=== PATIENT | male | born 1980 | race Two or more races ===

== ENCOUNTER 2024-04-05 00:37 | Emergency (ER) | payer MEDICAID, SELFPAY ==
[2024-04-05 00:52] VITALS: BP 128/83; PULSE 100; RESP 18; TEMP 37.2; O2SAT 95; BMI 28.6
--- NOTE | 2024-04-05 01:10 | PD.EDRME ---
Rapid Medical Screening Exam E Arrival date/time: 04/05/24 00:37 43M with history of seizures (on Keppra) presents to ED with 2 seizures today lasting about 3 min each. Chief Complaint: Seizure Vital signs: Vital Signs Temperature 99 F 04/05/24 00:52 Pulse Rate 100 04/05/24 00:52 Respiratory Rate 18 04/05/24 00:52 Blood Pressure 128/83 04/05/24 00:52 Pulse Oximetry (%) 95 04/05/24 00:52 Oxygen Delivery Method Room Air 04/05/24 00:52
[2024-04-05 01:34] LABS: Basophils # (Auto) 0.1 Thou/mm3 (0.0-0.2); Basophils % (Auto) 1 % (0-2.5); Eosinophils % (Auto) 0 % (0-10); Hematocrit 46.3 % (41.0-53.0); Immature Granulocytes % (Auto) 0 % (0-0); Immature Granulocytes Auto 0.03 Thou/mm3 (0.00-0.00); Lymphocytes # (Auto) 1.2 Thou/mm3 (1.0-4.8); Lymphocytes % (Auto) 12 % (10-50); Mean Corpuscular HGB Conc 34.6 g/dl (31.0-37.0); Mean Corpuscular Hemoglobin 31.9 pg (25.0-35.0); Mean Corpuscular Volume 92 fL (80-100); Monocytes # (Auto) 0.7 Thou/mm3 (0.0-0.8); Monocytes % (Auto) 7 % (0-12); Neutrophils # (Auto) 7.7 Thou/mm3 (1.8-7.7); Neutrophils % (Auto) 80 % (37-80); Nucleated Red Blood Cell % 0 /100 WBC (0); Platelet Count 182 Thou/mm3 (140-440); RDW Standard Deviation 41.6 fL (35.1-43.9); Red Blood Count 5.01 Miln/mm3 (4.50-5.90); White Blood Count 9.6 Thou/mm3 (3.8-10.6)
[2024-04-05 01:54] LABS: Alanine Aminotransferase 14 U/L (10-49); Albumin, Serum 4.8 gm/dL (3.5-5.0); Albumin/Globulin Ratio 1.6 (1.2-2.2); Alkaline Phosphatase 100 U/L (46-116); Anion Gap 6 (7-16); Aspartate Amino Transferase 19 U/L (0-34); BUN/Creatinine Ratio 13 Ratio (12-20); Bilirubin,Total 0.5 mg/dL (0.3-1.2); Blood Urea Nitrogen 16 mg/dL (9-23); Calcium 9.9 mg/dL (8.3-10.6); Calcium (Corrected) 9.9 mg/dL (8.5-10.1); Carbon Dioxide 27.4 mMol/L (20.0-31.0); Chloride 108 mMol/L (98-107); Creatinine (Component) 1.2 mg/dL (0.6-1.3); Estimated Creatinine Clearance 90.8 mL/min (>60); Glucose 104 mg/dL (74-106); Osmolality,Calculated 282 (275-295); Potassium 4.2 mMol/L (3.4-5.1); Sodium 141 mMol/L (136-145); Total Protein 7.8 gm/dL (5.7-8.2); eGFR > 60 See Note
[2024-04-05 02:03] LABS: Amphetamine/Methamp Scrn,U Negative (Negative); Barbiturate Screen,Urine Negative (Negative); Benzodiazepines Screen,Urine Negative (Negative); Benzoylecgonine Screen, Ur Negative (Negative); Fentanyl Screen,Urine Negative (Negative); Opiate Screen,Urine Negative (Negative); THC Screen,Urine Negative (Negative)
[2024-04-05 02:26] VITALS: BP 127/83; PULSE 88; RESP 18; TEMP 37.3; O2SAT 95
[2024-04-05 04:14] VITALS: BP 119/81; PULSE 70; RESP 17; TEMP 37.1; O2SAT 98
--- NOTE | 2024-04-05 06:39 | XR_ITS ---
Examination: CT brain head without contrast. 2-D sagittal coronal reconstructions Date and time of exam:April 05, 2024 0746 hrs. Indications: 2 episodes of seizure activity today, loss of consciousness episode November 29, 2007 CTDI: vol (mGy):54.6 DLP: (mGycm):1100 Technique: Multiple CT axial sections of the brain have been obtained, 5 mm slice thickness. Contrast has not been administered. 2-D sagittal, coronal reconstructions have been obtained Low dose protocols were performed. One or more of the following dose reduction techniques were used; automated exposure control, adjustment of the mA and/or KV according to patient size, use of iterative reconstruction technique. Findings: No significant ventricular enlargement. Intra-axial or extra-axial hemorrhage density is not seen. No mass effect or midline shift Basal cisterns are not remarkable. Fourth ventricle is midline. Cranial vault intact. Impression: Negative for acute hemorrhage, mass effect or midline shift Consider brain MRI follow-up, pre and postcontrast, seizure protocol
--- NOTE | 2024-04-05 08:58 | PD.EDSEIZ ---
ED Seizures RME/HPI General Chief Complaint: Seizure Stated Complaint: 2 Seizures in a row Time Seen by Provider: 04/05/24 05:41 Arrival date/time: 04/05/24 00:37 43-year-old male with seizure disorder currently on Keppra presents to the emergency department today stating that he had 2 seizures last night patient reports last seizure 12:30 AM. Patient reports no headache dizziness or weakness at this time patient reports no chest pain or shortness of breath no fever Limitations: no limitations RME / HPI RME / HPI Narrative: 04/05/24 00:37 43M with history of seizures (on Keppra) presents to ED with 2 seizures today lasting about 3 min each. Related Data Home Medications ?Medication ?Instructions ?Recorded ?Confirmed Phenytoin Sodium Extended * 3 cap PO QHS 0 days ##0 07/04/07 (DILANTIN *) gabapentin 300 mg capsule 300 mg PO HS ##0 04/10/09 (Neurontin) Previous Rx's ?Medication ?Instructions ?Recorded erythromycin 5 mg/gram (0.5 %) eye 2 inch Left eye BID ##1 09/01/11 ointment Allergies Allergy/AdvReac Type Severity Reaction Status Date / Time No Known Allergies Allergy Mild Uncoded 07/04/07 00:25 Review of Systems Review of Systems Systems Reviewed: All systems reviewed, normal except as documented Constitutional Constitutional: Reports system reviewed and no additional complaints, except as documented, Denies fever(s) and Denies headache(s) Eyes Eyes: Reports system reviewed and no additional complaints, except as documented and Denies blurry vision ENT Ears, Nose, Mouth, and Throat: Reports system reviewed and no additional complaints, except as documented, Denies headache(s), Denies nasal congestion and Denies nasal discharge Cardiovascular Cardiovascular: Reports system reviewed and no additional complaints, except as documented, Denies chest pain and Denies dyspnea Respiratory Respiratory: Reports system reviewed and no additional complaints, except as documented, Denies chest congestion, Denies cough and Denies dyspnea Gastrointestinal Gastrointestinal: Reports system reviewed and no additional complaints, except as documented and Denies abdominal pain Integumentary/Breasts Skin/Breast: Reports system reviewed and no additional complaints, except as documented and Denies rash Neurologic Neurologic: Reports system reviewed and no additional complaints, except as documented, Reports as per HPI and Denies headache(s) Past Medical History Past Medical History NEUROLOGIC: Negative Neurological Disorders CARDIAC: Negative Cardiac Disorders ED Exam General Limitations: Present no limitations General appearance: Present alert and in no apparent distress Head Head exam: Present atraumatic, normocephalic and normal inspection Eye Eye exam: Present normal appearance, PERRL and EOMI; Absent conjunctival injection ENT ENT exam: Present normal exam, normal oropharynx and mucous membranes moist Neck Neck exam: Present normal inspection, full ROM, trachea midline and other (Patient moves neck without difficult); Absent tenderness, meningismus or lymphadenopathy Chest Chest inspection: Present normal inspection and symmetric chest wall rise Respiratory Respiratory exam: Present normal lung sounds bilaterally Cardiovascular Cardiovascular exam: Present regular rate, normal rhythm and normal heart sounds Abdominal Exam Abdominal exam: Present soft and normal bowel sounds Extremities Exam Extremities exam: Present normal inspection and full ROM Back Exam Back exam: Present normal inspection and full ROM Neurological Exam Neurological exam: Present alert, oriented X3 and CN II-XII intact Psychiatric Psychiatric exam: Present normal affect and normal mood Skin Skin exam: Present warm, dry, intact and normal color Course Quality Measures none Orders Category Date Time Status CT head/brain wo con Stat Exams 04/05/24 06:39 Completed CBC Stat Lab 04/05/24 01:16 Completed CMP [Comprehensive Metabolic Panel] Stat Lab 04/05/24 01:16 Completed Drug Screen,Urine Stat Lab 04/05/24 01:24 Completed Lactate (Lactic Acid) Stat Lab 04/05/24 01:16 Completed Vital Signs Vital signs: Vital Signs Temperature 99 F 04/05/24 00:52 Pulse Rate 100 04/05/24 00:52 Respiratory Rate 18 04/05/24 00:52 Blood Pressure 128/83 04/05/24 00:52 Pulse Oximetry (%) 95 04/05/24 00:52 Oxygen Delivery Method Room Air 04/05/24 00:52 O2 saturation 95% room air within normal limit Seizure MDM Narrative MDM Narrative:: 43-year-old male with seizure disorder currently on Keppra presents to the emergency department today stating that he had 2 seizures last night patient reports last seizure 12:30 AM. Patient reports no headache dizziness or weakness at this time patient reports no chest pain or shortness of breath On exam patient well-appearing patient does not appear ill or toxic Lab work was ordered by my colleague, no acute emergent findings noted I ordered a CT scan, no acute emergent findings noted Patient took his dose of Keppra here in the emergency department Patient instructed to follow-up with neurologist within the next 24 to 48 hours and for any worsening symptoms to return immediately Patient data External records reviewed:: [facility] previous records Clinical information provided by:: patient Social determinants that could affect healthcare access:: none Patient has the following chronic illnesses:: Seizure disorder How is presenting disease/condition affected by chronic disease/condition?: caused by Evaluation data The following diagnostics were reviewed and interpreted by me:: lab results and radiology exam(s) Lab and/or radiology exams considered but not ordered:: Labs and radiology obtained Interpretation Summary: Reviewed by me Medications / Prescriptions Medications or Prescriptions considered but not ordered:: Given no meds Medication administrations:: No meds Consultations Consultation(s) initiated? (list below): No Diagnosis Seizure Differential Diagnosis: intractable seizure disorder, febrile convulsion, focal seizure, new onset seizure and epileptic seizure Most likely diagnosis given after review of the tests above:: Seizure disorder Admission Indicated Admission indicated?: not indicated Admission Request Was there a request for admission?: No Disposition Plan Disposition Plan: Discharge Discharge Attestation Discharge Attestation: The patient and all family members were given an opportunity to ask questions and understood the discharge instructions. Discharge instructions specifically effects, indications for sooner follow up or return to the emergency department, and the expected course of current diagnosis. Patient condition: Stable Discharge Plan Plan Patient Disposition: HOME (Self Care) Disposition Comment: Stable Prescriptions/Referrals Prescriptions/Med Rec: No Action Phenytoin Sodium Extended * (DILANTIN *) 100 MG capsule 3 cap PO QHS 0 Days Qty: 0 Patient Comments: FOR SEIZURE CONTROL gabapentin [Neurontin] 300 MG capsule 300 mg PO HS Qty: 0 erythromycin 3.5 GM ointment 2 inch Left eye BID Qty: 1 0RF Referrals: Josh Calderon MD [Primary Care Provider] - In 1 week Problem List Clinical Impression: Breakthrough seizure Patient/Caregiver Discharge Instructions Education Materials: ED Seizure, Recurrent (Adult) Additional Instructions: Please follow-up with your neurologist as discussed for worsening symptoms return immediately take all medication as prescribed Print Language: Sinhala Stand Alone Forms: [employer]umn Award Info., Patient Portal Info Letter PA/ENVIRONMENTAL PROGRAM MANAGER Supervising Physician PA/CHEMO Supervising Physician: Dr Brink
[2024-04-05 09:04] VITALS: BP 129/82; PULSE 75; RESP 17; TEMP 36.8; O2SAT 97
== END 2024-04-05 09:04 | disposition home or self-care (01) ==
PROVIDERS: Physician Assistant; Emergency Provider Emergency Medicine; PCP Family Medicine
DX: R56.9 Unspecified convulsions (principal)
CPT/HCPCS: 36415; 70450; 80053; 80307; 83605; 85025; 99284

== ENCOUNTER 2024-09-15 05:16 | Observation (INO) | payer MEDICAID, SELFPAY ==
[2024-09-15] VITALS (7 sets, daily range): BP systolic 115–130; BP diastolic 76–86; PULSE 72–98; RESP 15–21; TEMP 36.7–37.3; O2SAT 93–99; BMI 28.3
--- NOTE | 2024-09-15 | XR_ITS ---
Examination: MRI of brain without intravenous contrast. MRI brain with intravenous contrast. Date and time of exam:September 15, 2024 at 0955 hours INDICATIONS: Recurrent seizures beginning last night Technique: Multiple axial and sagittal images of the brain to been obtained. Siemens high-resolution 1.52 Yadira short bore scanner utilized. Sagittal sections, T1 weighted images, TR 500, TE 14, are performed. Axial sections proton-density and T2-weighted images have been obtained. Inversion recovery axial images, TR 9260, TE 111, TR 2500. Diffusion weighted images, axial sections, TR 4800, TE 128, B value 1000. Axial sections, ADC map, TR 4800, TE 128. Axial and coronal images were also obtained post 19 cc gadolinium administered intravenously. Findings:: Enlargement of the sella turcica is not present. The optic chiasm and infundibular stalk are not remarkable. There is no localized enlargement of the medulla or heena. Fourth ventricle and cerebellar tonsils appear normal in position. No subacute area of hemorrhage density is seen. Fourth ventricle is midline. Mass in the cerebellopontine angle region is not evident. 7th and 8th nerve complexes exhibit symmetry Globes are symmetrical Orbital musculature including medial lateral rectus muscles do not exhibit abnormality Increased white matter signal is not seen Effacement of the cortical sulcal markings is not identified. Mass effect upon the ventricular system is not identified. Diffusion-weighted images demonstrate no focus of restricted diffusion Contrast images demonstrate no abnormal enhancement Impression: Negative for acute hemorrhage mass effect or midline shift No acute infarct No MR findings diagnostic for demyelinating disease No abnormal enhancing lesions noted
--- NOTE | 2024-09-15 05:44 | XR_ITS ---
Examination: CT brain head without contrast. 2-D sagittal coronal reconstructions Date and time of exam:September 15, 2024 at 0640 hours INDICATIONS: New seizures this morning CTDI: vol (mGy):55.6 DLP: (mGycm):1125 Technique: Multiple CT axial sections of the brain have been obtained, 5 mm slice thickness. Contrast has not been administered. 2-D sagittal, coronal reconstructions have been obtained Low dose protocols were performed. One or more of the following dose reduction techniques were used; automated exposure control, adjustment of the mA and/or KV according to patient size, use of iterative reconstruction technique. Findings: No significant ventricular enlargement. Intra-axial or extra-axial hemorrhage density is not seen. No mass effect or midline shift Basal cisterns are not remarkable. Fourth ventricle is midline. Cranial vault intact. Impression: Negative for acute hemorrhage, mass effect or midline shift Consider brain MRI follow-up, pre and postcontrast, seizure protocol
--- NOTE | 2024-09-15 05:45 | PD.EDRME ---
Rapid Medical Screening Exam [facility] Arrival date/time: 09/15/24 05:16 43M with history of seizures presents to ED with 3 seizures yesterday. Patient has MAS and N/V. Patient denies URI symptoms and fevers/chills. Chief Complaint: Seizure Vital signs: Vital Signs Temperature 99.1 F 09/15/24 05:17 Pulse Rate 93 09/15/24 05:17 Respiratory Rate 20 09/15/24 05:17 Blood Pressure 115/80 09/15/24 05:17 Pulse Oximetry (%) 94 L 09/15/24 05:17 Oxygen Delivery Method Room Air 09/15/24 05:17
[2024-09-15] MEDS: LORazepam 0.5 MG TABLET 2 MG PO (06:06)
[2024-09-15] MEDS: ONDANSETRON ODT 4 MG TABRAP PO (06:07)
[2024-09-15 06:14] LABS: Basophils % (Auto) 0 % (0-2.5); Eosinophils % (Auto) 0 % (0-10); Hematocrit 43.8 % (41.0-53.0); Hemoglobin 15.7 g/dL (13.5-16.0); Immature Granulocytes % (Auto) 0 % (0-0); Immature Granulocytes Auto 0.05 Thou/mm3 (0.00-0.00); Lymphocytes # (Auto) 1.5 Thou/mm3 (1.0-4.8); Lymphocytes % (Auto) 10 % (10-50); Mean Corpuscular HGB Conc 35.8 g/dl (31.0-37.0); Mean Corpuscular Hemoglobin 32.4 pg (25.0-35.0); Mean Corpuscular Volume 90 fL (80-100); Monocytes % (Auto) 7 % (0-12); Neutrophils # (Auto) 12.2 Thou/mm3 (1.8-7.7); Neutrophils % (Auto) 83 % (37-80); Nucleated Red Blood Cell % 0 /100 WBC (0); Platelet Count 180 Thou/mm3 (140-440); RDW Standard Deviation 39.9 fL (35.1-43.9); Red Blood Count 4.85 Miln/mm3 (4.50-5.90); White Blood Count 14.8 Thou/mm3 (3.8-10.6)
[2024-09-15 06:39] LABS: Alanine Aminotransferase 14 U/L (10-49); Albumin, Serum 4.6 gm/dL (3.5-5.0); Albumin/Globulin Ratio 1.7 (1.2-2.2); Alcohol, Blood Medical < 3.0 mg/dL (0-10.0); Alkaline Phosphatase 95 U/L (46-116); Anion Gap 11 (7-16); Aspartate Amino Transferase 25 U/L (0-34); BUN/Creatinine Ratio 12 Ratio (12-20); Bilirubin,Total 0.7 mg/dL (0.3-1.2); Blood Urea Nitrogen 13 mg/dL (9-23); Calcium 8.6 mg/dL (8.3-10.6); Calcium (Corrected) 8.6 mg/dL (8.5-10.1); Carbon Dioxide 23.9 mMol/L (20.0-31.0); Chloride 107 mMol/L (98-107); Creatinine (Component) 1.1 mg/dL (0.6-1.3); Estimated Creatinine Clearance 104.5 mL/min (>60); Globulin 2.7 gm/dL (2.3-3.5); Glucose 182 mg/dL (74-106); Osmolality,Calculated 288 (275-295); Potassium 3.8 mMol/L (3.4-5.1); Sodium 142 mMol/L (136-145); Total Protein 7.3 gm/dL (5.7-8.2); eGFR > 60 See Note
[2024-09-15 07:54] LABS: Collection Type, Urine Clean Catch
--- NOTE | 2024-09-15 08:13 | EDNOTE_ITS ---
<Statement entered by Lindy Steinberg MD - 09/28/24 07:26> I, Lindy Steinberg MD, have reviewed the history, exam, and assessment of the patient. I have evaluated the patient independently and agree with the plan of care documented by [ ]. All diagnostic studies were reviewed and discussed. I confirm the diagnosis as documented by the Resident. I was present during the Medical Decision Making for this patient. The patient's plan of care was created between myself and the Resident and consistent with our discussion of the patient's case. ED General RME/HPI General Chief complaint: Seizure Stated complaint: SEIZURE Arrival date/time: 09/15/24 05:16 RME / HPI RME / HPI narrative: This patient is a 43-year-old male with past medical history of seizures on Keppra presented to the ED on 09/15/2024 with chief complaint of 3 recurrent seizures started at midnight witnessed by her sister at the bedside. She reported that first 2 seizure lasted for 5 minutes with loss of consciousness and regaining back after a minute. Third seizure was 20 minutes longer associated with full jerking and shaking of the body with tongue bite and urine incontinence. Patient was having postictal confusion and headache. Patient was AO x 3 during the assessment. He reported that he has generalized headache as 6 on 10 associated with nausea and vomited x 3 consisting of digested food partic les. He also reported to have pain in the epigastric region constant achy 3/10. He also reported to have muscle soreness. He also reported to have mild dizziness and lightheadedness. Denied any fever chills, chest pain, dysuria, cough or any other complaint. He does not work and usually stays at home. He reported that he has some mild sleep disruption but no significant stressor. He had 2 seizures 2 months ago. Patient's follow-up with neurologist at [facility] and his PCP is Dr. Calderon. PMH: Seizures on Keppra PSH: History of ground-level fall with left leg fracture. SH: Denies smoking tobacco. Drinks alcohol socially. Last drink was Wednesday. No history of illicit drug use. Lives with his parent and currently not working. Allergies: No known drug allergies Home medication Keppra 1 g twice daily Patient was given Ativan 2 mg and Zofran 4 mg x 1 in the ED. Vitals showed blood pressure of 115/80, pulse 93, respiratory 20 and temp nine 9.1. He was saturating well on room air. Labs were significant for leukocytosis white count 14.8, hemoglobin 15.7, platelet count 180. Chemistry panel showed sodium 142, potassium 3.8, chloride 107. Kidney functions showed BUN 39 creatinine 1.1. Lactic acid 2.0. Liver enzymes unremarkable. Urinalysis is pending. Blood alcohol level is negative. Head CT showed no acute changes. 8: 20 patient was given loading dose of Keppra 1 g x 1 and 1 L bolus of NS. Additionally, patient was given 20 mg IV Pepcid. Neurologist was contacted and per recommendation if patient ends up in another seizure it was recommended to give him a loading dose of Vimpat 200 mg x 1 and Vimpat 100 mg twice daily later. She also recommended to get an EEG and MRI brain without contrast to evaluate further. Patient will need to be admitted for further evaluation. 8: 53 Discussed case with hospitalist team regarding admission. Discussed patient's ED course, exam findings, labs and radiology results. Hospitalist team agreed to accept the patient for admission. MD complaint: seizures Onset (ago): day(s) (1) Location: head Associated symptoms: headaches, malaise, nausea/vomiting and weakness Related Data Home Medications ?Medication ?Instructions ?Recorded ?Confirmed Phenytoin Sodium Extended * 3 cap PO QHS 0 days ##0 (DILANTIN *) gabapentin 300 mg capsule 300 mg PO HS ##0 04/10/09 (Neurontin) Previous Rx's ?Medication ?Instructions ?Recorded erythromycin 5 mg/gram (0.5 %) eye 2 inch Left eye BID ##1 09/01/11 ointment Allergies Allergy/AdvReac Type Severity Reaction Status Date / Time No Known Allergies Allergy Verified 09/15/24 05:18 Review of Systems Review of Systems Systems Reviewed: All systems reviewed, normal except as documented Past Medical History Past Medical History NEUROLOGIC: Negative Neurological Disorders CARDIAC: Negative Cardiac Disorders ED Exam Narrative Physical exam: GENERAL APPEARANCE: AxOx4, generally well-appearing male in no acute distress. HEENT: NC, AT. Dry mucous membrane. EOMI, clear conjunctiva, oropharynx clear. Tongue bite. NECK: Supple without lymphadenopathy. No stiffness or restricted ROM. HEART: Regular rate and regular rhythm, normal S1/S2, no m/r/g LUNGS: CTAB, moving air well. No crackles or wheezes are heard. ABDOMEN: Soft, epigastric tenderness, nondistended with good bowel sounds heard. BACK: No CVAT, no obvious deformity. EXTREMITIES: Without cyanosis, clubbing or edema. NEUROLOGICAL: Grossly nonfocal. Alert and oriented, moving all 4 extremities. CN not formally tested but appear grossly intact. Observed to ambulate with normal gait. Skin: Warm and dry without any rash. Psych: Drowsy however has appropriate mood and affect Course Course Course Narrative: This patient is a 43-year-old male with past medical history of seizures on Keppra presented to the ED on 09/15/2024 with chief complaint of 3 recurrent seizures started at midnight witnessed by her sister at the bedside. She reported that first 2 seizure lasted for 5 minutes with loss of consciousness and regaining back after a minute. Third seizure was 20 minutes longer associated with full jerking and shaking of the body with tongue bite and urine incontinence. Patient was having postictal confusion and headache. Patient was AO x 3 during the assessment. He reported that he has generalized headache as 6 on 10 associated with nausea and vomited x 3 consisting of digested food particles. He also reported to have pain in the epigastric region constant achy 3/10. He also reported to have muscle soreness. He also reported to have mild dizziness and lightheadedness. Denied any fever chills, chest pain, dysuria, cough or any other complaint. He does not work and usually stays at home. He reported that he has some mild sleep disruption but no significant stressor. He had 2 seizures 2 months ago. Patient's follow-up with neurologist at [facility] and his PCP is Dr. Calderon. Patient was given Ativan 2 mg and Zofran 4 mg x 1 in the ED. Vitals showed blood pressure of 115/80, pulse 93, respiratory 20 and temp nine 9.1. He was saturating well on room air. Labs were significant for leukocytosis white count 14.8, hemoglobin 15.7, platelet count 180. Chemistry panel showed sodium 142, potassium 3.8, chloride 107. Kidney functions showed BUN 39 creatinine 1.1. Lactic acid 2.0. Liver enzymes unremarkable. Urinalysis is pending. Blood alcohol level is negative. Head CT showed no acute changes. 8: 20 patient was given loading dose of Keppra 1 g x 1 and 1 L bolus of NS. Additionally, patient was given 20 mg IV Pepcid. Neurologist was contacted and per recommendation if patient ends up in another seizure it was recommended to give him a loading dose of Vimpat 200 mg x 1 and Vimpat 100 mg twice daily later. She also recommended to get an EEG and MRI brain without contrast to evaluate further. Patient will need to be admitted for further evaluation. 8: 53 Discussed case with hospitalist team regarding admission. Discussed patient's ED course, exam findings, labs and radiology results. Hospitalist team agreed to accept the patient for admission. Quality Measures none Orders Category Date Time Status Aspiration precautions ONCE Care 09/15/24 08:17 Active COVID-19 Screening Questionnaire NOW Care 09/15/24 08:38 Active Decision to Admit X1 Care 09/15/24 08:38 Completed MRI Screening NOW Care 09/15/24 08:54 Active Neuro Check Q4H Care 09/15/24 08:17 Active Seizure precautions NOW Care 09/15/24 08:17 Active Consult to Neurology / Tele-Neurology Stat Cons 09/15/24 08:[address] head/brain wo con Stat Exams 09/15/24 05:44 Completed MR head/brain wo con Stat Exams 09/15/24 Ordered Alcohol, Blood Medical Stat Lab 09/15/24 05:54 Completed CBC Stat Lab 09/15/24 05:54 Completed CMP [Comprehensive Metabolic Panel] Stat Lab 09/15/24 05:54 Completed Creatine Kinase Stat Lab 09/15/24 08:14 Ordered Lactate (Lactic Acid) Stat Lab 09/15/24 05:54 Completed Magnesium Stat Lab 09/15/24 08:14 Ordered Phosphorous Stat Lab 09/15/24 08:14 Ordered Urinalysis, C/S if Indicated Stat Lab 09/15/24 07:36 Received Famotidine Inj [Pepcid Inj] Med 09/15/24 08:54 Discontinued 20 mg IVP X1 ONE LORazepam [Ativan Inj] Med 09/15/24 08:18 Discontinued 2 mg IVP Q6H PRN LORazepam [Ativan] Med 09/15/24 05:45 Discontinued 2 mg PO X1 ONE Ondansetron Odt [Zofran Odt] Med 09/15/24 05:45 Discontinued 4 mg PO X1 ONE Sodium Chloride 0.9% 1000 ml [Ns] 1,000 ml Med 09/15/24 08:14 Active IV 999 mls/hr levETIRAcetam INJ [Keppra Inj] Med 09/15/24 08:14 Discontinued 1,000 mg IVP X1 ONE EEG Awake and Drowsy Routine RT 09/15/24 08:54 Ordered Vital Signs Vital signs: Vital Signs Temperature 99.1 F 09/15/24 05:17 Pulse Rate 93 09/15/24 05:17 Respiratory Rate 20 09/15/24 05:17 Blood Pressure 115/80 09/15/24 05:17 Pulse Oximetry (%) 96 09/15/24 05:17 Oxygen Delivery Method Room Air 09/15/24 05:17 Discharge Plan Plan Patient Disposition: Admit Acute Care w/in Hospital Prescriptions/Referrals Prescriptions/Med Rec: No Action Phenytoin Sodium Extended * (DILANTIN *) 100 MG capsule 3 cap PO QHS 0 Days Qty: 0 Patient Comments: FOR SEIZURE CONTROL gabapentin [Neurontin] 300 MG capsule 300 mg PO HS Qty: 0 erythromycin 3.5 GM ointment 2 inch Left eye BID Qty: 1 0RF Referrals: Josh Calderon MD [Primary Care Provider] - In 1 week Problem List Clinical Impression: Epileptic seizure Patient/Caregiver Discharge Instructions Print Language: [place] Stand Alone Forms: [employer] Award Info., Patient Portal Info Letter MDM Narrative MDM hospital course (for use when minimal MDM required): This patient is a 43-year-old male with past medical history of seizures on Keppra presented to the ED on 09/15/2024 with chief complaint of 3 recurrent seizures started at midnight witnessed by her sister at the bedside. She reported that first 2 seizure lasted for 5 minutes with loss of consciousness and regaining back after a minute. Third seizure was 20 minutes longer associated with full jerking and shaking of the body with tongue bite and urine incontinence. Patient was having postictal confusion and headache. Patient was AO x 3 during the assessment. He reported that he has generalized headache as 6 on 10 associated with nausea and vomited x 3 consisting of digested food particles. He also reported to have pain in the epigastric region constant achy 3/10. He also reported to have muscle soreness. He also reported to have mild dizziness and lightheadedness. Denied any fever chills, chest pain, dysuria, cough or any other complaint. He does not work and usually stays at home. He reported that he has some mild sleep disruption but no significant stressor. He had 2 seizures 2 months ago. Patient's follow-up with neurologist at [facility] and his PCP is Dr. Calderon. Patient was given Ativan 2 mg and Zofran 4 mg x 1 in the ED. Vitals showed blood pressure of 115/80, pulse 93, respiratory 20 and temp nine 9.1. He was saturating well on room air. Labs were significant for leukocytosis white count 14.8, hemoglobin 15.7, platelet count 180. Chemistry panel showed sodium 142, potassium 3.8, chloride 107. Kidney functions showed BUN 39 creatinine 1.1. Lactic acid 2.0. Liver enzymes unremarkable. Urinalysis is pending. Blood alcohol level is negative. Head CT showed no acute changes. 8:20 patient was given loading dose of Keppra 1 g x 1 and 1 L bolus of NS. Additionally, patient was given 20 mg IV Pepcid. Neurologist was contacted and per recommendation if patient ends up in another seizure it was recommended to give him a loading dose of Vimpat 200 mg x 1 and Vimpat 100 mg twice daily later. She also recommended to get an EEG and MRI brain without contrast to evaluate further. Patient will need to be admitted for further evaluation. 8: 53 Discussed case with hospitalist team regarding admission. Discussed patient's ED course, exam findings, labs and radiology results. Hospitalist team agreed to accept the patient for admission. Medication Administration(s) Medication Administration History Sodium Chloride (Ns) 1,000 mls @ 999 mls/hr IV .Q1H1M ONE Stop: 09/15/24 09:14 Discontinued Medications Famotidine (Famotidine Inj 10 Mg/Ml Vial 2 Ml) 20 mg IVP X1 ONE Stop: 09/15/24 08:55 Levetiracetam (Levetiracetam Inj 100 Mg/Ml Vial 5ml) 1,000 mg IVP X1 ONE Stop: 09/15/24 08:15 Lorazepam (Lorazepam 0.5 Mg Tablet) 2 mg PO X1 ONE Stop: 09/15/24 05:46 Last Admin: 09/15/24 06:06 Dose: 2 mg Documented By: KWABENA Lorazepam (Lorazepam 2 Mg/Ml Vial) 2 mg IVP Q6H PRN PRN Reason: Breakthrough seizures Stop: 09/20/24 08:17 Ondansetron HCl (Ondansetron Odt 4 Mg Tabrap) 4 mg PO X1 ONE; Protocol Stop: 09/15/24 05:46 Last Admin: 09/15/24 06:07 Dose: 4 mg Documented By: KWABENA Consultations/Discussions re: Management Consult #1: Date/time: 09/15/24 9:05 am Physician, specialty, service, details: Neurologist, Dr Tavarez was consulted and she recommended to admit the patient and perform EEG and MRI brain with and without contrast for further eval uation. If he have another seizure episode recommended to give Vimpat 200 mg x 1 and then 100 mg twice daily later.
--- NOTE | 2024-09-15 09:04 | XR_ITS ---
Examination: Chest single view Technique one AP portable upright chest view Date and time: September 15, 2024 0929 hours INDICATIONS: Weakness nausea vomiting today FINDINGS: Poor inspiratory effort chest x-ray Normal heart size No aspiration pneumonia The osseous structures are intact IMPRESSION: Poor inspiratory effort chest x-ray
--- NOTE | 2024-09-15 09:04 | EKG_ITS ---
[facility] Test Date: 2024-09-15 Pat Name: JOSH GRIFFITH Department: Room: - Gender: Male Disability Benefits Specialist: : 1980 Requested By: Hollis Cazares Order Number: [id number] Reading MD: Hollis Cazares Measurements Intervals Corder Rate: 67 P: 49 OH: 143 QRS: 7 QRSD: 109 T: 31 QT: 403 QTc: 427 Interpretive Statements SINUS RHYTHM No previous ECG available for comparison /store/S0/[id number]/[id number].pdf
[2024-09-15] MEDS: SODIUM CHLORIDE 0.9% 1000 ML 1,000 ML 999 ML IV (09:13)
[2024-09-15] MEDS: FAMOTIDINE INJ 10 MG/ML VIAL 2 ML 20 MG IVP (09:14)
[2024-09-15] MEDS: levETIRAcetam INJ 100 MG/ML VIAL 5ML 1000 MG IVP ×3 (09:14→20:56)
[2024-09-15 09:27] LABS: Creatine Kinase 352 U/L (34-171); Magnesium 2.4 mg/dL (1.6-2.6); Phosphorous 2.4 mg/dL (2.4-5.1)
--- NOTE | 2024-09-15 09:33 | PD.RESHP ---
Documentation for date of: 09/15/24 HPI History of Present Illness Chief complaint: Breakthrough seizures History of present illness: HPI: Patient somnolent and poor historian at this moment. Majority of history obtained from his sister, Suzanne at bedside. Patient is a 43-year-old male with past medical history significant for epilepsy presenting today with a chief complaint of multiple seizures. Between 12 AM and 4 AM today patient had 4 seizure episodes each lasting approximately 5 minutes. Postictally he took about 5-15 minutes after each episode to become aware, but not back to baseline. According to his sister it was described as generalized tonic-clonic motion, eye rolling, tongue biting and urinary incontinence. Denies any head trauma,aura, headache, vomiting, sick contact, recent stressors, change in medication and illicit drug use. Currently patient is A&O x 3, but somnolent. Of note his sister states that he is a social drinker and would have 1 beer on occasions, his last drink was last week Wednesday. Upon review the sister says that every few months he would have seizures episodes but did not require hospitalization for the past year due to seizures. He follows up with a neurologist in [place] Whose name she cannot recall. ED course: BP 115/80, pulse 93, RR 20, temp 99.1 F, SpO2 96% on room air. Labs showed WBC 14.8, Hb 6.7, HCT 42.8, BUN 13, CR 1.1, LA 2, corrected Ca 8.6, CK 352. Urinalysis clean. Chest x-ray showed poor inspiratory effort. No signs of aspiration, consolidation or effusion. Head CT negative for acute hemorrhage, mass effect or midline shift. Brain MRI negative for acute hemorrhage mass effect or midline shift. No findings suggestive of demyelinating disease or abnormal enhancement lesions. In the ED patient received lorazepam 2 Mg p.o. x 1, ondansetron 4 Mg p.o. x 1, normal saline 1L IVF bolus, levetiracetam 1 g IV x 1 and famotidine 20 Mg IV x 1. Patient will be admitted for treatment and management of breakthrough seizures. Neurology, Dr. Tavarez consulted and closely following the case. Review of Systems Review of Systems ROS Unobtainable: unobtainable due to mental status Past Medical History Past Medical History Comments PMH COMMENT: Past medical history: Epilepsy Medication list: Levetiracetam 1500 Mg p.o. at bedtime Zonisamide 200 Mg p.o. at bedtime Past surgical history: Left hip surgery [no plate or screws in situ] Allergies: NKFDA Social history: Occupational History: Education Level: Attended college, did not graduate Marital Status: Tobacco use: Denies ETHO use: Socially Illicit drug use: Denies Social History Note: lives with Parents and sister. Family History: Brother?lymphoma Mother?diabetes, hypertension and seizures Exam Vital Signs Temp Pulse Resp BP Pulse Ox O2 Del Method 99.0 F 81 16 121/86 H 95 Room Air 09/15/24 08:28 09/15/24 08:28 09/15/24 08:28 09/15/24 08:28 09/15/24 08:28 09/15/24 08:28 Narrative Exam Constitutional Alert, oriented x 3, somnolent HEENT Vision grossly intact. Patent nares. Trachea midline Respiratory Chest normal on inspection and clear auscultation bilaterally Cardiovascular S1 and S2 audible, RRR. No murmurs carotid bruit. No gross JVD. Abdominal Soft and non tender to palpation in all quadrants. BS + Genitourinary No bladder tenderness, no flank pain. Normal to palpation Musculoskeletal Extremities tone within normal limits. No LE edema. Neurological CN II - XII grossly intact. Extremity motor and sensation grossly intact. Skin Warm, dry and intact. No apparent lesions. Psychiatric Patient is somnolent. Results: Labs 09/16/24 05:54 09/16/24 05:54 Labs: Short CBC 09/15/24 Range/Units 05:54 WBC 14.8 H (3.8-10.6) Thou/mm3 Hgb 15.7 (13.5-16.0) g/dL Hct 43.8 (41.0-53.0) % Plt Count 180 (140-440) Thou/mm3 BMP 09/15/24 05:54 Sodium 142 Potassium 3.8 Chloride 107 Carbon Dioxide 23.9 BUN 13 Creatinine 1.1 Glucose 182 H Calcium 8.6 Cardiac Enzymes 09/15/24 Range/Units 08:57 Total Creatine Kinase 352 H (34-171) U/L Liver Function 09/15/24 Range/Units 05:54 Total Bilirubin 0.7 (0.3-1.2) mg/dL AST 25 (0-34) U/L ALT 14 (10-49) U/L Alkaline Phosphatase 95 (46-116) U/L Albumin 4.6 (3.5-5.0) gm/dL Quality Measures Quality Measures none Medications Home Medications and Allergies Home Medications ?Medication ?Instructions ?Recorded ?Confirmed ?Type Phenytoin Sodium Extended * 3 cap PO QHS 0 days ##0 07/04/07 09/15/24 History (DILANTIN *) gabapentin 300 mg capsule 300 mg PO HS ##0 04/10/09 09/15/24 History (Neurontin) levetiracetam 1,000 mg tablet 2,000 mg PO HS 09/15/24 09/15/24 History Allergies Allergy/AdvReac Type Severity Reaction Status Date / Time No Known Allergies Allergy Verified 09/15/24 05:18 Visit Medications Discontinued Medications Famotidine (Famotidine Inj 10 Mg/Ml Vial 2 Ml) 20 mg IVP X1 ONE Stop: 09/15/24 08:55 Last Admin: 09/15/24 09:14 Dose: 20 mg Sodium Chloride (Ns) 1,000 mls @ 999 mls/hr IV .Q1H1M ONE Stop: 09/15/24 09:14 Last Admin: 09/15/24 09:13 Dose: 999 mls/hr Levetiracetam (Levetiracetam Inj 100 Mg/Ml Vial 5ml) 1,000 mg IVP X1 ONE Stop: 09/15/24 08:15 Last Admin: 09/15/24 09:14 Dose: 1,000 mg Lorazepam (Lorazepam 0.5 Mg Tablet) 2 mg PO X1 ONE Stop: 09/15/24 05:46 Last Admin: 09/15/24 06:06 Dose: 2 mg Lorazepam (Lorazepam 2 Mg/Ml Vial) 2 mg IVP Q6H PRN PRN Reason: Breakthrough seizures Stop: 09/20/24 08:17 Ondansetron HCl (Ondansetron Odt 4 Mg Tabrap) 4 mg PO X1 ONE; Protocol Stop: 09/15/24 05:46 Last Admin: 09/15/24 06:07 Dose: 4 mg Assessment & Plan Plan Patient is a 43-year-old male with past medical history significant for epilepsy presenting today with a chief complaint of multiple seizures. Patient will be admitted for treatment and management of breakthrough seizures. Breakthrough seizures Likely status epilepticus Patient presented with four seizure episodes each lasting 5 or more minutes. Chest x-ray showed poor inspiratory effort. No signs of aspiration, consolidation or effusion. Head CT negative for acute hemorrhage, mass effect or midline shift. Brain MRI negative for acute hemorrhage mass effect or midline shift. No findings suggestive of demyelinating disease or abnormal enhancement lesions. Etiology: Medication noncompliance, sleep deprivation, alcohol use, viral infection. Plan: ? N.p.o. for now ? Swallow screen. Once passed, can start on regular diet ? Aspiration precautions ? Seizure precautions ? Head of bed elevation ? MRI brain with and without contrast ? EEG awake and drowsy ? Levetiracetam 1 g IV x 1 [loading dose]. Followed by levetiracetam 1 g IV every 12 hourly scheduled. ? Zonisamide 100 Mg p.o. daily ? Lacosamide 200 Mg IV x 1 as needed for breakthrough seizures ? Neurology, Dr. Tavraez consulted and closely following the case. Appreciate recommendations. Elevated CK CK 352 on admission Most likely secondary to seizure activity. Out of range for rhabdomyolysis. Plan: ? Normal saline 1 L IV fluid at 125 cc/h ? Monitor CK on a.m. lab Leukocytosis WBC 14.8 on admission likely reactive from seizure activity. Currently no signs of infection Health maintenance: Disposition: Pending EEG. Neurology recommendations Diet: N.p.o. Lines: pIVs GI Prophylaxis: Not indicated Thrombo Prophylaxis: Not indicated Code status: FULL CODE Plan of care discussed with Attending Dr. Marylou Lassiter MD PGY 1 Disclaimer: This note was dictated by speech recognition. Minor errors in hire car driver may be present due to voice recognition software. Attending Provider Attestation/Addendum I have examined the patient, reviewed labs and imaging findings, discussed the case with the resident(s), and reviewed entered orders. I agree with the plan of care as outlined in this note, with these additional summaries/recommendations: After examination of the patient and review of clinical data I feel that this patient needs admission to the hospital for further treatment and evaluation. Patient seen at bedside. Patient is able to respond to some questions but not providing thorough history and appears to be in postictal state. History obtained from patient's sister at bedside. Patient's sister reports he had 3 seizures that were witnessed by family member. Sister reports she thinks the first 2 seizures lasted for approximately 5 minutes and then gained reconsciousness in between seizures. Third seizure lasted approximately 20 minutes. Patient was then brought to the emergency room. Patient started on IV Keppra 1000 mg twice daily and Zonegran. Continue IV fluids. As needed Ativan for breakthrough seizure. In-house neurology consulted, recommendations appreciated. Order MRI brain and EEG. Seizure precautions. No identifiable trigger for breakthrough seizure at this time. Patient appears compliant with antiepileptic regimen. Repeat hematology and chemistry panel in AM. All questions answered to satisfaction. Dr. Marylou MD
--- NOTE | 2024-09-15 09:40 | PC.CC ---
JUNIOR Fermin attempted to complete an initial assessment with the pt at bedside X2 but pt was doing xrays. ASW will return at a later time to attempt to complete the initial assessment.
[2024-09-15 11:01] LABS: Bilirubin,Urine Negative (Negative); Blood,Urine Negative (Negative); Clarity,Urine Clear (Clear/Hazy); Color,Urine Lt Yellow (Lt Yel-Yel); Culture Indicated,Urine Not Indicated; Glucose, Urine Negative (Negative); Ketones,Urine 1+ (Negative); Leukocyte Esterase,Urine Negative (Negative); Nitrite,Urine Negative (Negative); Protein,Urine Negative (Neg - Trace); Specific Gravity,Urine 1.025 (1.001-1.035); Urobilinogen,Urine 0.2 mg/dL (0.0-1.0)
[2024-09-15 11:02] LABS: Bacteria,Urine Rare; Squamous Epithelial Cell,Urine 2 /hpf (0-5); WBC,Urine 2 /hpf (0-5)
[2024-09-15] MEDS: SODIUM CHLORIDE 0.9% 1000 ML 1,000 ML 125 ML IV (11:04)
[2024-09-15 11:05] LABS: RBC,Urine 2 /hpf (0-3)
--- NOTE | 2024-09-15 12:53 | ESCONSULT_ITS ---
HPI Data of Consult Requesting Physician: Philip Hickman MD Admitting Provider: Philip Hickman MD Attending Provider: Philip Hickman MD Primary Care Provider: Josh Calderon MD Consult Narrative Reason for consult: breakthrough seizure History of present illness: The patient is a 43-year-old male with a previous medical history of seizure disorder on Keppra and zonisamide who was brought to the ED on 09/15/2024 after having series of 3 seizures that were witnessed by family member. At the moment of examination patient is somnolent part of the history was gathered through the chart review. First 2 seizures lasted for 5 minutes with a loss of consciousness, he regained consciousness in between seizures. Third seizure lasted longer, approximately 20 minutes. After the seizure patient was having postictal confusion and headache. He denies headache, pain, cough. He does remember the last time he had a seizure. ED course:Initial vitals blood pressure 115/83, pulse 93, afebrile, saturating well on room air. Labs were remarkable for WBC count 14.8, hemoglobin 15.7, sodium 142, potassium 3.8, BUN 13, creatinine 1.1, lactic acid 2.0 calcium 8.6 T. bili 0.7, CK 352 UA was negative for signs of UTI. He received lorazepam 2 mg x 1, levetiracetam 1 g IV push and was started on levetiracetam 1000 and zonisamide. Social history: does not work Home medications: pending official med rec. Denies smoking, recreational substances. Drinks alcohol socially. Last drink was Wednesday. cc:: cc: Philip Hickman MD Review of Systems Review of Systems Systems Reviewed: All systems reviewed, normal except as documented Exam Vital Signs Temp Pulse Resp BP Pulse Ox O2 Del Method 99.0 F 81 16 121/86 H 95 Room Air 09/15/24 08:28 09/15/24 08:28 09/15/24 08:28 09/15/24 08:28 09/15/24 08:28 09/15/24 08:28 Narrative Exam Gen: Well-developed and well-nourished. Sleeping in the bed, easily arousable. HEENT: NCAT, PERRLA, EOMI, MMM, anicteric conjunctivae. CVS: normal S1 and S2. RRR. No M/R/G. Resp: CTA B/L. No rhonchi, rales, crackles or wheezing. Abd: soft, non-tender, non-distended. BS+ in all 4 quadrants. MSK: Good ROM in BUE & BLE. No edema or rash. Neuro: CN II-XII grossly intact. Strength 5/5 in BUE & BLE. Alert and oriented x3. Psych: appropriate mood and affect. Results Labs 09/16/24 05:54 09/16/24 05:54 Labs: Short CBC 09/15/24 Range/Units 05:54 WBC 14.8 H (3.8-10.6) Thou/mm3 Hgb 15.7 (13.5-16.0) g/dL Hct 43.8 (41.0-53.0) % Plt Count 180 (140-440) Thou/mm3 BMP 09/15/24 05:54 Sodium 142 Potassium 3.8 Chloride 107 Carbon Dioxide 23.9 BUN 13 Creatinine 1.1 Glucose 182 H Calcium 8.6 Cardiac Enzymes 09/15/24 Range/Units 08:57 Total Creatine Kinase 352 H (34-171) U/L Liver Function 09/15/24 Range/Units 05:54 Total Bilirubin 0.7 (0.3-1.2) mg/dL AST 25 (0-34) U/L ALT 14 (10-49) U/L Alkaline Phosphatase 95 (46-116) U/L Albumin 4.6 (3.5-5.0) gm/dL Urine 09/15/24 Range/Units 07:36 Urine Color Lt Yellow (Lt Yel-Yel) Urine Clarity Clear (Clear/Hazy) Urine pH 6.0 (5.0-7.0) Ur Specific [place] 1.025 (1.001-1.035) Urine Protein Negative (Neg - Trace) Urine Glucose (UA) Negative (Negative) Quality Measures Quality Measures none Medications Home Medications and Allergies Allergies Allergy/AdvReac Type Severity Reaction Status Date / Time No Known Allergies Allergy Verified 09/15/24 05:18 Visit Medications Acetaminophen (Acetaminophen 325 Mg Tablet) 650 mg PO Q6H PRN PRN Reason: Fever >100.3 or pain 1-3 Stop: 10/15/24 09:32 Albuterol/Ipratropium (Albuterol/Ipratropium (Duoneb) Rt Kristin 3 Ml Nebu) 3 ml INH Q4HR PRN PRN Reason: SHORTNESS OF BREATH OR WHEEZE Stop: 10/15/24 09:32 Sodium Chloride (Ns) 1,000 mls @ 125 mls/hr IV .Q8H ONE Stop: 09/15/24 18:42 Last Admin: 09/15/24 11:04 Dose: 125 mls/hr Lacosamide (Lacosamide Inj 200 Mg/20 Ml Vial) 200 mg IVP X1 PRN PRN Reason: Seizure Stop: 10/15/24 09:37 Levetiracetam (Levetiracetam Inj 100 Mg/Ml Vial 5ml) 1,000 mg IVP Q12HR PIYUSH Stop: 10/15/24 11:04 Last Admin: 09/15/24 12:23 Dose: 1,000 mg Ondansetron HCl (Ondansetron Inj 2 Mg/Ml Inj 2 Ml) 4 mg IV Q6H PRN; Protocol PRN Reason: NAUSEA OR VOMITING Stop: 10/15/24 09:32 Zonisamide (Zonisamide 100 Mg Capsule) 100 mg PO QDAY PIYUSH Stop: 10/15/24 12:14 Discontinued Medications Famotidine (Famotidine Inj 10 Mg/Ml Vial 2 Ml) 20 mg IVP X1 ONE Stop: 09/15/24 08:55 Last Admin: 09/15/24 09:14 Dose: 20 mg Sodium Chloride (Ns) 1,000 mls @ 999 mls/hr IV .Q1H1M ONE Stop: 09/15/24 09:14 Last Infusion: 09/15/24 11:05 Dose: Infused Levetiracetam (Levetiracetam Inj 100 Mg/Ml Vial 5ml) 1,000 mg IVP X1 ONE Stop: 09/15/24 08:15 Last Admin: 09/15/24 09:14 Dose: 1,000 mg Lorazepam (Lorazepam 0.5 Mg Tablet) 2 mg PO X1 ONE Stop: 09/15/24 05:46 Last Admin: 09/15/24 06:06 Dose: 2 mg Lorazepam (Lorazepam 2 Mg/Ml Vial) 2 mg IVP Q6H PRN PRN Reason: Breakthrough seizures Stop: 05/21/25 08:17 Ondansetron HCl (Ondansetron Odt 4 Mg Tabrap) 4 mg PO X1 ONE; Protocol Stop: 09/15/24 05:46 Last Admin: 09/15/24 06:07 Dose: 4 mg Assessment & Plan Plan The patient is a 43-year-old male with a previous medical history of seizure disorder on Keppra and zonisamide who was brought to the ED on 09/15/2024 after having series of 3 seizures that were witnessed by family member. #Seizure disorder #Breakthrough seizure PAtient has a history of seizure disorder and has been following up with neurologist in [place]. Imaging was negative for acute intracranial pathology. Labs were negative for sources of methabolic encephalopathy. Plan: - urine drug screen - Keppra 1000 mg q12 hr - If continues to have seizures on Keppra, add Lacosamide - seizure precautions - EEG pending - Follow-up with neurologist outpatient - swallow screen Plan of care discussed with attending Dr. Tavarez. Evelin Hampton MD, PGY 1. Attending Provider Attestation/Addendum I personally have seen and examined the patient at the bedside and agree with resident's findings, assessment and plan of care. Advised him about the importance of compliance to prevent recurrence
--- NOTE | 2024-09-15 15:52 | RESP.EEG ---
EEG done and ready to be read
--- NOTE | 2024-09-15 15:56 | PC.CC ---
Patient is a 43 year-old male who presents to the hospital for breakthrough seizures. Michelle PACHECO made yzyv-[id number] contact with patient. ASW introduced self, role, and reason for visit.?Patient was asleep at the time of assessment present at bedside was patient's sister, Suzanne Santos whom patient completed initial assessment with. Patient's sister is listed on demographics as next of kin. It was reported that information on demographics is correct and patient lives with his parents. Per sister, at home patient is independent with ADLs and ambulates independently. Patient does not require any DME. Patient receives primary care with Josh Calderon and uses [facility] for prescription medications. Patient is not currently employed. Upon discharge family plans on taking patient back home. program services planner to follow up with any discharge needs.
--- NOTE | 2024-09-15 16:03 | PC.CC ---
Patient is a 43 year-old male who presents to the hospital for breakthrough seizures. Michelle PACHECO made hyzj-vc-[id number] contact with patient. ASW introduced self, role, and reason for visit.?Patient was asleep at the time of assessment present at bedside was patient's sister, Suzanne Santos whom patient completed initial assessment with. Patient's sister is listed on demographics as next of kin. It was reported that information on demographics is correct and patient lives with his parents. Per sister, at home patient is independent with ADLs and ambulates independently. Patient does not require any DME. Patient receives primary care with Josh Calderon and uses [email or web address] for prescription medications. Patient is not currently employed. Upon discharge family plans on taking patient back home. application services manager to follow up with any discharge needs.
[2024-09-15 16:11] LABS: Amphetamine/Methamp Scrn,U Negative (Negative); Barbiturate Screen,Urine Negative (Negative); Benzodiazepines Screen,Urine Negative (Negative); Benzoylecgonine Screen, Ur Negative (Negative); Fentanyl Screen,Urine Negative (Negative); Opiate Screen,Urine Negative (Negative); THC Screen,Urine Negative (Negative)
[2024-09-16] VITALS: BP 109/72; PULSE 83; PULSE 87; RESP 17; TEMP 37.2; O2SAT 99
[2024-09-16 04:00] VITALS: BP 137/83; PULSE 72; PULSE 73; RESP 12; TEMP 37.1; O2SAT 99
[2024-09-16 06:00] VITALS: BMI 28.3
[2024-09-16 06:44] LABS: Glucose Estimated Average 105 mg/dL (80-131); Hemoglobin A1C 5.3 % Hgb (4.8-6.0)
[2024-09-16 06:49] LABS: Basophils % (Auto) 0 % (0-2.5); Eosinophils % (Auto) 0 % (0-10); Hemoglobin 14.3 g/dL (13.5-16.0); Immature Granulocytes % (Auto) 0 % (0-0); Immature Granulocytes Auto 0.03 Thou/mm3 (0.00-0.00); Lymphocytes # (Auto) 1.5 Thou/mm3 (1.0-4.8); Lymphocytes % (Auto) 15 % (10-50); Mean Corpuscular HGB Conc 35.8 g/dl (31.0-37.0); Mean Corpuscular Hemoglobin 32.5 pg (25.0-35.0); Mean Corpuscular Volume 91 fL (80-100); Monocytes # (Auto) 0.8 Thou/mm3 (0.0-0.8); Monocytes % (Auto) 8 % (0-12); Neutrophils # (Auto) 7.9 Thou/mm3 (1.8-7.7); Neutrophils % (Auto) 77 % (37-80); Nucleated Red Blood Cell % 0 /100 WBC (0); Platelet Count 123 Thou/mm3 (140-440); RDW Standard Deviation 40.6 fL (35.1-43.9); White Blood Count 10.3 Thou/mm3 (3.8-10.6)
[2024-09-16 07:25] LABS: Alanine Aminotransferase 11 U/L (10-49); Albumin, Serum 4.1 gm/dL (3.5-5.0); Albumin/Globulin Ratio 1.7 (1.2-2.2); Alkaline Phosphatase 74 U/L (46-116); Anion Gap 11 (7-16); Aspartate Amino Transferase 20 U/L (0-34); BUN/Creatinine Ratio 10 Ratio (12-20); Bilirubin,Total 1.1 mg/dL (0.3-1.2); Blood Urea Nitrogen 9 mg/dL (9-23); Calcium 8.1 mg/dL (8.3-10.6); Calcium (Corrected) 8.1 mg/dL (8.5-10.1); Carbon Dioxide 25.7 mMol/L (20.0-31.0); Cardiac Risk Estimate 2.9 RATIO (4.0-6.7); Chloride 108 mMol/L (98-107); Cholesterol 114 mg/dL (132-200); Creatine Kinase 244 U/L (34-171); Creatinine (Component) 0.9 mg/dL (0.6-1.3); Estimated Creatinine Clearance 127.8 mL/min (>60); Globulin 2.4 gm/dL (2.3-3.5); Glucose 100 mg/dL (74-106); HDL Cholesterol 40 mg/dL (40-60); LDL Cholesterol,Calculated 61 mg/dL (0-130); Osmolality,Calculated 287 (275-295); Potassium 3.2 mMol/L (3.4-5.1); Sodium 145 mMol/L (136-145); Thyroid Stimulating Hormone 0.58 uIU/mL (0.55-4.78); Total Protein 6.5 gm/dL (5.7-8.2); Triglycerides 65 mg/dL (30-150); eGFR > 60 See Note
[2024-09-16 08:00] VITALS: BP 120/80; PULSE 82; PULSE 84; RESP 14; TEMP 36.4; O2SAT 94
[2024-09-16] MEDS: POTASSIUM CHLORIDE 10% 20 MEQ/15 ML UDC 40 MEQ PO (08:39)
[2024-09-16] MEDS: ZONISAMIDE 100 MG CAPSULE PO (08:40)
[2024-09-16] MEDS: levETIRAcetam INJ 100 MG/ML VIAL 5ML 1000 MG IVP (08:40)
[2024-09-16] MEDS: CALCIUM GLUC/NS 1000MG IVPB 1,000 MG/50 ML BAG 50 MG IV (08:42)
--- NOTE | 2024-09-16 08:55 | XR_ITS ---
Examination: Left elbow 3 views Technique: Elbow AP, oblique, lateral 3 views Exam date and time: September 16, 2024, 0922 hrs. Indications: Seizure last night, patient fell with injury to the elbow, elbow pain Findings: No acute fracture. Significant elbow effusion. No dislocation Impression: No acute fracture Given the elbow effusion, suggest short-term follow-up elbow films as clinically warranted..
[2024-09-16] MEDS: ACETAMINOPHEN 325 MG TABLET 650 MG PO (08:57)
[2024-09-16] MEDS: NAPH,KPH MBDB 1 PACKET (1.5 GM) PO (10:59)
[2024-09-16 11:18] VITALS: BMI 28.3
--- NOTE | 2024-09-16 11:20 | PC.DIETICIAN ---
Nutrition Prescription (wound): 1) RD added LU BID with lunch and dinner. 2) Recommend adding Vitamin C 500mg BID, Zinc 220mg x14 days, and multivitamin-mineral daily. Thank you! :)
[2024-09-16] MEDS: LIDOCAINE VISCOUS 2% 15 ML UDC PO (11:58)
[2024-09-16 12:00] VITALS: BP 121/81; PULSE 73; PULSE 75; RESP 19; TEMP 36.3; O2SAT 95
[2024-09-16 13:53] VITALS: BMI 15.0
--- NOTE | 2024-09-16 13:58 | ESDS_ITS ---
<Statement entered by Jean-Pierre Burks MD - 09/17/24 17:53> Patient was seen and examined at bedside, agree on the assessment and plan on this note. - Patient's plan and care discussed with my attending, Dr. Marylou Burks MD Internal Medicine PGY-2 Planned Discharge Date 09/16/24 DS: Providers Provider Date of admission: 09/15/24 09:33 Primary care physician: Josh Calderon MD Admitting Provider: Philip Hickman MD Attending Provider on Admission: Philip Hickman MD Consults: 09/15/24 08:17 Consult to Neurology / Tele-Neurology Stat Comment: Consulting Provider: Jose Martin Tavarez 09/15/24 21:29 Referral Wound Care Routine Comment: new pt, seizures, bit tounge both sides, open skin 09/15/24 21:30 Referral Registered Dietitian Routine Comment: new pt, seizures, bit tounge both sides, open skin 09/16/24 08:56 Referral Physical Therapy Routine Comment: Physician Instructions: Instructions: Post seizure. Muscle pain Attending Provider on DC: Philip Hickman MD Discharging Provider: Ramirez Lassiter MD DS: Diagnosis Problem List Completed Was Problem List Reviewed/Reconciled?: Yes Hospital Course Hospital Course Hospital course: Patient is a 43-year-old male with past medical history significant for epilepsy presenting today with a chief complaint of multiple seizures. Patient will be admitted for treatment and management of breakthrough seizures. Prior to hospitalization patient had 4 seizure episodes. During his stay he was treated with levetiracetam 1 g IV twice daily along with zonisamide 100 Mg p.o. at bedtime. Head CT was negative for acute hemorrhage, mass effect or midline shift. Brain MRI was negative for acute hemorrhage mass effect or midline shift. No findings suggestive of demyelinating disease or abnormal enhancement. EEG was an abnormal study. Neurology, Dr. Tavarez recommended patient be discharged on levetiracetam 1 g p.o. twice daily and zonisamide 100 Mg p.o. at bedtime. Absolutely no driving for at least 1 year. For the patient's elevated CK, he was treated with normal saline IV fluids after which it improved. All patient's labs are now returning to his baseline and patient is clinically stable and fit for discharge to home. Discharge diagnoses: 1. Breakthrough seizures?resolved 2. Status epilepticus?resolved 3. Elevated CK?resolving 4. Leukocytosis?resolved Discharge plan: ? We have increased your Keppra dose to 1500 Mg p.o. twice daily. Take 1.5 tablets twice a day. ? You have been started on a new seizure medication zonisamide. Take 1 tablet at night. ? We have started you on a pain medication for your elbow. Take 1 tablet up to twice a day as needed for the next week. and follow up with your PCP for further recommendations - You have been started on a mouthwash for your tongue ulcer. You can take up to 2 times a day as needed for the next 5 days. ? Your EEG [brain scan] results were abnormal. Do not drive for 1 year or and until cleared by your neurologist ? Make an appointment and follow-up with your neurologist within 1-2 weeks of discharge. - Your thyroid labs were borderline. Follow-up with your primary care doctor for repeat labs in 6 weeks. ? Follow-up with your primary care doctor to monitor your left elbow effusion. - Follow up with your primary care physician within 1 week of discharge. If you do not have a primary care physician, please follow up with the [facility] clinic ([phone]) ? If you experience any new, worsening or persistent symptoms either call your primary doctor, or dial 911 or present to the emergency department. We are grateful to be able to participate in Mr. Wylie's care. We wish him the best. Plan of care discussed with Attending Dr. Hickman and PGY 2 Dr. Vitaliy Lassiter MD PGY 1 Disclaimer: This note was dictated by speech recognition. Minor errors in treasury representative may be present due to voice recognition software. Time Spent with Patient Time attestation: Total time spent providing and/or coordinating discharge services: Time spent: Greater than 30 minutes (41) Exam Vital Signs Temp Pulse Resp BP Pulse Ox O2 Del Method 97.3 F 75 19 121/81 95 Room Air 09/16/24 12:00 09/16/24 12:00 09/16/24 12:00 09/16/24 12:00 09/16/24 12:09/16/24 12:00 Narrative Exam Constitutional Alert, oriented x 3 and comfortable HEENT Vision grossly intact. Patent nares. Trachea midline Respiratory Chest normal on inspection and clear auscultation bilaterally Cardiovascular S1 and S2 audible, RRR. No murmurs carotid bruit. No gross JVD. Abdominal Soft and non tender to palpation in all quadrants. BS + Genitourinary No bladder tenderness, no flank pain. Normal to palpation Musculoskeletal Extremities tone within normal limits. No LE edema. Neurological CN II - XII grossly intact. Extremity motor and sensation grossly intact. Skin Warm, dry and intact. No apparent lesions. Psychiatric Patient has good affect, is cooperative Discharge Plan Plan Patient Disposition: HOME (Self Care) Patient condition on transfer: Stable and Benefits outweigh risks Care Plan Goals: ? We have increased your Keppra dose to 1500 Mg p.o. twice daily. Take 1.5 tablets twice a day. ? You have been started on a new seizure medication zonisamide. Take 1 tablet at night. ? We have started you on a pain medication for your elbow. Take 1 tablet up to twice a day as needed for the next week. and follow up with your PCP for further recommendations - You have been started on a mouthwash for your tongue ulcer. You can take up to 2 times a day as needed for the next 5 days. ? Your EEG [brain scan] results were abnormal. Do not drive for 1 year or and until cleared by your neurologist ? Make an appointment and follow-up with your neurologist within 1-2 weeks of discharge. - Your thyroid labs were borderline. Follow-up with your primary care doctor for repeat labs in 6 weeks. ? Follow-up with your primary care doctor to monitor your left elbow effusion. - Follow up with your primary care physician within 1 week of discharge. If you do not have a primary care physician, please follow up with the [facility] clinic ([phone]) ? If you experience any new, worsening or persistent symptoms either call your primary doctor, or dial 911 or present to the emergency department. Prescriptions/Referrals Prescriptions/Med Rec: New levetiracetam 1,000 mg tablet 1,500 mg PO BID 30 Days Qty: 90 0RF zonisamide 100 mg capsule 100 mg PO HS 30 Days Qty: 30 0RF celecoxib 200 mg capsule 200 mg PO BID PRN (Reason: pain) 7 Days Qty: 14 0RF lidocaine HCl [Lidocaine Viscous] 2 % solution 5 ml PO BID PRN (Reason: mouth pain) 5 Days Qty: 100 0RF Discontinued Phenytoin Sodium Extended * (DILANTIN *) 100 MG capsule 3 cap PO QHS 0 Days Qty: 0 Patient Comments: FOR SEIZURE CONTROL gabapentin [Neurontin] 300 MG capsule 300 mg PO HS Qty: 0 erythromycin 3.5 GM ointment 2 inch Left eye BID Qty: 1 0RF levetiracetam 1,000 mg tablet 2,000 mg PO HS Referrals: Josh Calderon MD [Primary Care Provider] - Ramirez Lassiter MD [Resident] - Patient/Caregiver Discharge Instructions Other Discharge Activity Instructions:: NO driving or heavy machinery operation for 1 year and until cleared by your neurologist Education Materials: Treating Epilepsy: Medicines, Self-Care for Epilepsy, Epilepsy: Safety During a Seizure, Living Well with Epilepsy, Discharge Instructions for Epilepsy Print Language: Albanian Stand Alone Forms: [employer] Award Info., Patient Portal Info Letter, Work/Release Restrictions Discharge Order Discharge Orders: Discharge (Routine); Ordered 09/16/24 Ordered By: Ramirez Lassiter Quality Discharge Quality Measures VTE prophylaxis Attestestation MD Attestation I have examined the patient, reviewed labs and imaging findings, discussed the case with the resident(s), and reviewed entered orders. I agree with the plan of care as outlined in this note. Time Spent: [address] Marylou MD
[2024-09-16] MEDS: CELECOXIB 100 MG CAPSULE 200 MG PO (14:58)
[2024-09-16 16:06] VITALS: BP 119/81; PULSE 71; RESP 24; TEMP 36.4; O2SAT 93
--- NOTE | 2024-09-17 01:25 | PD.NEUROPROG ---
Documentation for date of: 09/16/24 Subjective Subjective Interval history: Patient was seen in telemetry today. No new symptoms reported. No seizures reported after admission. Exam - Neurology Vital Signs Temp Pulse Resp BP Pulse Ox O2 Del Method 97.6 F 71 24 H 119/81 93 L Room Air 09/16/24 16:06 09/16/24 16:06 09/16/24 16:06 09/16/24 16:06 09/16/24 16:06 09/16/24 16:06 Narrative Exam GENERAL APPEARANCE: Well hydrated, well-nourished in no acute distress. HEENT: Normocephalic, atraumatic, extraocular movements intact. Pupils: Equal reacting to light and accommodation, tympanic membranes are bilaterally intact. There is no bulge or retraction. Throat without erythema or exudate. Moist oral mucosa. NECK: Supple, no JVD or bruits. CARDIOVASULAR: Heart: S1, S2 heard, regular without S3-S4 or murmur no rubs or gallops. LUNGS/CHEST: Clear to auscultation bilaterally. No rails, rhonchi, or wheezing. Normal inspection. ABDOMEN: Soft, nontender, with normal bowel sounds. No pulsatile masses. No rebound, rigidity, or guarding. Normal inspection and palpation. EXTREMITIES: Normal inspection and palpation. No edema, clubbing or cyanosis. SKIN: Warm and dry without rashes. Normal inspection. MUSCULOSKELETAL: No cervical, thoracic, lumbar or midline bony tenderness. Normal inspection. NEURO: Alert, awake and oriented x3. Cranial nerves: II through XII grossly intact. Speech and language: Normal with no dysarthria or dysphasia. Motor system: Tone and bulk: Normal: Strength: 5 out of 5 in all 4 extremities; No pronator drift noted. Deep tendon reflexes: 2+ bilaterally symmetrical. Plantar reflex: Downgoing bilaterally. Sensory system: Intact to all modalities of sensation bilaterally. Coordination: Intact to [id number] and lhiz-zzur-[id number] test bilaterally. No ataxia, no dysmetria, or dysdiadochokinesia noted. No intention tremors noted. Gait: Normal. Toe, heel, tandem walk all are normal. Romberg: Negative. No signs of meningeal irritation noted. PSYCHIATRIC: Normal mood and affect. Denies homicidal or suicidal ideation. Objective Labs 09/16/24 05:54 09/16/24 05:54 Labs: Laboratory Results - last 24 hr 09/16/24 05:54 WBC 10.3 RBC 4.40 L Hgb 14.3 Hct 40.0 L MCV 91 MCH 32.5 MCHC 35.8 RDW Std Deviation 40.6 Plt Count 123 L D Neut % (Auto) 77 Lymph % (Auto) 15 [place] % (Auto) 8 Eos % (Auto) 0 Baso % (Auto) 0 Neut # (Auto) 7.9 H Lymph # (Auto) 1.5 [place] # (Auto) 0.8 Eos # (Auto) 0.0 Baso # (Auto) 0.0 Immature Gran # (Auto) 0.03 H Absolute Nucleated RBC 0.00 Immature Gran % 0 Nucleated RBC % 0 Sodium 145 Potassium 3.2 L D Chloride 108 H Carbon Dioxide 25.7 Anion Gap 11 BUN 9 Creatinine 0.9 Estim Creat Clear Calc 127.8 eGFR > 60 BUN/Creatinine Ratio 10 L Glucose [address] Glu mg/dL 105 Hemoglobin A1c 5.3 Calculated Osmolality 287 Calcium 8.1 L Corrected Calcium 8.1 L Total Bilirubin 1.1 AST 20 ALT 11 Alkaline Phosphatase 74 D Total Creatine Kinase 244 H D Total Protein 6.5 Albumin 4.1 D Globulin 2.4 Albumin/Globulin Ratio 1.7 Triglycerides 65 Cholesterol 114 L LDL Cholesterol, Calc 61 HDL Cholesterol 40 Cholesterol/HDL Ratio 2.9 L TSH 0.58 Assessment & Plan Assessment and plan (1) Epilepsy: Status: Acute Assessment and plan: Continue with the Keppra 1500 mg twice daily. Advised him about the importance of compliance to prevent recurrence. Follow-up with the local neurologist. No driving until he remains seizure-free for 1 year as the EEG was abnormal.
== END 2024-09-16 16:10 | disposition home or self-care (01) ==
LOC: SERX 08:58 → SERHOLD 10:09 → S2NX 17:36
PROVIDERS: Physician Assistant; Student in an Organized Health Care Education/Training Program; Admitting Provider Student in an Organized Health Care Education/Training Program; Emergency Provider Emergency Medicine; PCP Family Medicine; Visit Provider Student in an Organized Health Care Education/Training Program
DX: G40.901 Epilepsy, unspecified, not intractable, with status epilepticus (principal); D72.829 Elevated white blood cell count, unspecified; G93.40 Encephalopathy, unspecified; M62.82 Rhabdomyolysis; Z83.3 Family history of diabetes mellitus; Z82.49 Family history of ischemic heart disease and other diseases of the circulatory system; Z79.899 Other long term (current) drug therapy
CPT/HCPCS: 36415; 70450; 70553; 71045; 73080; 80053; 80061; 80307; 80320; 81001; 82550; 83036; 83605; 83735; 84100; 84443; 85025; 93005; 95816; 96361; 96365; 96374; 96375; 96376; 97162; 99285; A9579; G0378; J0613; J1953; J3490; J7030; Q0162; A9270; G0480

== ENCOUNTER 2024-09-18 14:39 | Outpatient (AMB) | payer MEDICAID, SELFPAY ==
--- NOTE | 2024-09-18 15:03 | ACNOTE_ITS ---
Vital Signs 09/18/24 15:07 Height 1.83 m Height Method Stated Weight 91.626 kg Weight Measurement Method Standing Scale BMI 27.3 BP 122/81 Blood Pressure Source Automatic Cuff Blood Pressure Location Right Upper Arm Position Sitting Respiration 14 Pulse 66 Pulse Source Monitor Temp 98.0 F Temp Source Oral Pulse Oximetry (%) 97 Oxygen Delivery Method Room Air Allergies/Meds Allergies & Medications Allergies No Known Allergies Allergy (Verified 09/18/24 15:08) Medication Reconciliation celecoxib 200 mg capsule 200 mg PO BID PRN pain 1 week #14 caps 09/16/24 [Rx Confirmed 09/18/24] lidocaine HCl 2 % mucosal solution (Lidocaine Viscous) 5 ml PO BID PRN mouth pain 5 days #100 mL 09/16/24 [Rx Confirmed 09/18/24] levetiracetam 1,000 mg tablet 1,500 mg (1.5 x 1,000 mg) PO BID 1 month #90 tabs 09/18/24 [Rx] zonisamide 100 mg capsule 100 mg PO HS 1 month #30 caps 09/18/24 [Rx] MA Intake Visit Data Collection New Patient or Established: Established Patient (seen at [facility] within 3 years) Seen by Clinical Staff ONLY (RN/MA): No Reason for Visit:: HOSPITAL FOLLOW UP Pain Present Currently: No Pain Location: Mouth (TONGUE) Pain scale:: 6 Pain Scale Used: [employer] Development [employer] Required: No PCP or OBGYN visit in last 3 months: Yes Hx Now: No Do You Feel Safe at Home: Yes Smoking Status Smoking Status: Never smoker Immunization / Flu Flu Vaccine in the Last 12 Months: No Flu Vaccine Exclusion Criteria: No Exclusion Criteria Past Medical History Past Medical History NEUROLOGIC: Negative Neurological Disorders, Cerebrovascular Accident, Transient Ischemic Attacks (TIA), Dementia, Alzheimer's Disease, Parkinson's Disease, Brain Tumor, Meningitis, Seizures, Epilepsy, Multiple Sclerosis, Cerebral Palsy, Amyotrophic Lateral Sclerosis (ALS/Adelina Gehrig's), Guillain-Hart[place] Syndrome, Spina Bifida, Paralysis, Peripheral Neuropathy, Munoz's Palsy, Subdural Hematoma, Migraine, Head Trauma, Spinal Cord Injury or Traumatic Brain Injury CARDIAC: Negative Cardiac Disorders, Myocardial Infarction, Cardiac Arrhythmia, Atrial Fibrillation, Angina, Heart Murmur, Coronary Artery Disease, Atherosclerotic Heart Disease, Peripheral Vascular Disease, Hypercholesterolemia, Aneurysm, Congestive Heart Failure, Congenital Heart Disease, Valvular Heart Disease, Rheumatic Fever, Cardiomyopathy, Edema, Pericarditis, Cellulitis, Deep Vein Thrombosis, Hypertension, Hypotension or Varicose Veins RESPIRATORY: Negative Chronic Obstructive Pulmonary Disease (COPD), Asthma, Bronchitis, Emphysema, Pneumonia, Pulmonary Fibrosis, Cystic Fibrosis, Tuberculosis, Pulmonary Embolism, Pulmonary Edema or Sleep Apnea GASTROINTESTINAL: Negative Gastrointestinal Disorders, Cirrhosis, Pancreatitis, Celiac Disease, Gall Bladder Disease, Gastrointestinal Bleed, Esophageal Varices, Snider's Esophagus, Colitis, Ulcerative Colitis, Diverticulitis, Diverticulosis, Ulcer, Irritable Bowel, Crohn's Disease, Obstructive Bowel, Hiatal Hernia, Hemorrhoids, Gastroesophageal Reflux Disease or Obesity GENITOURINARY: Negative Genitourinary Disorders, Renal Disease, Kidney Stones, Polycystic Kidney Disease, Neurogenic Bladder, Inguinal Hernia, Dialysis or Benign Prostatic Hyperplasia REPRODUCTIVE: Negative Fibroids, Genital Herpes, Gonorrhea, Syphilis or Testicular Cancer MUSCULOSKELETAL: Negative Muscular Dystrophy, Myasthenia Gravis, Marfan's Syndrome, Arthritis, Rheumatoid Arthritis, Osteoporosis, Degenerative Disk Disease, Gout, Scoliosis, Carpal Tunnel Syndrome, Fibromyalgia, Fractures, Degenerative Joint Disease, Osteomyelitis or Poliovirus ENT: Negative Cataracts, Glaucoma, Blind, Retinal Detachment, Macular Degeneration, Ear Infection, Deafness, Head Trauma or Eye Prosthesis ENDOCRINE: Negative Endocrine Disorders, Diabetes Mellitus Type 1, Diabetes Mellitus Type 2, Hypoglycemia, Sammy's Syndrome, Sotero's Disease, Hyperthyroidism, Hypothyroidism, Parathyroid Disease, Pituitary Disease, Systemic Lupus Erythematosus, Syndrome of Inappropriate Antidiuretic Hormone (SIADH), Adrenal Disease or Graves' Disease HEMATOLOGIC: Negative Blood Disorders, Anemia, Leukemia, Hemophilia, Thalassemia, Sickle Cell Disease or Clotting Problems PSYCHO/SOCIAL: Negative Psychiatric Problems, Schizophrenia, Recreational Drug Use, Bipolar Disorder, Depression, Anxiety, Behavior Problems, Self-Mutilation, Attention Deficit Disorder, Attention Deficit Hyperactivity Disorder, Depression, Post Traumatic Stress Disorder or Eating Disorder OTHER HISTORY: Negative Autism, Organ Transplant or Testicular Cancer Family History FAMILY HISTORY: Positive Family Cardiac Disorders, Family Cancer and Family Surgery; Negative Family Psychiatric Problems, Family Respiratory Disorders, Family Gastrointestinal Problems or Family Anesthesia Reaction Surgical History SURGICAL: Negative Cardiac Surgery, Open Heart Surgery, Coronary Artery Bypass Graft, Valve Replacement, Vascular Surgery, Coronary Stent, Cardiac Catheterization, Pacemaker, Angiogram, Auto Implanted Cardiovert Defib, Carotid Endarterectomy, Endocrine Surgery, Thyroidectomy, Ear Surgery, Tympanostomy Tube, Eye Surgery, Nose Surgery, Oral Surgery, Tonsillectomy, Adenoidectomy, Cochlear Implant, Corneal Transplant, Throat Surgery, Abdominal Surgery, Trac heostomy, Gastric Bypass Surgery, Gastrostomy, Bowel Surgery, Nephrectomy, Transurethral Resection, Joint Replacement, Amputation, Open Reduction Internal Fixation, Arthroscopy, Neurologic Surgery, Brain Shunt, Mastectomy, Vasectomy or Organ Transplant Social History SMOKING STATUS: Smoking status: Never smoker ALCOHOL FREQUENCY: Alcohol Intake Frequency: 0-2 Drinks per Day LIVES WITH: Lives With: Family Patient Portal Questionaires PHQ-9 PHQ-2 Over the last 2 weeks, how often have you been bothered by any of the following problems? 1. Little interest or pleasure in doing things: not at all 2. Feeling down, depressed, or hopeless: not at all Total score: 0 Depression screen completed yes Social History Tobacco History Smoking Status: Never smoker Alcohol History Alcohol Intake Frequency: 0-2 Drinks per Day Domestic Abuse History Do You Feel Safe at Home: Yes Review of Systems Report any current symptoms Only answer those that you have currently: Past Medical History Past Medical History Have you ever been diagnosed with any of the following: Neurological Problems Cerebrovascular Accident (CVA): No Transient Ischemic Attacks (TIA): No Dementia: No Alzheimer's Disease: No Parkinson's Disease: No Brain Tumor: No Meningitis: No Seizures: No Epilepsy: No Multiple Sclerosis: No Cerebral Palsy: No Amyotrophic Lateral Sclerosis (ALS/Adelina Gehrig's): No Guillain-Hartford Syndrome: No Spina Bifida: No Paralysis: No Peripheral Neuropathy: No Munoz's Palsy: No Subdural Hematoma: No Migraine: No Head Trauma: No Spinal Cord Injury: No Traumatic Brain Injury: No Cardiology Problems Myocardial Infarction: No Cardiac Arrhythmia: No Atrial Fibrillation: No Angina: No Heart Murmur: No Coronary Artery Disease: No Atherosclerotic Heart Disease: No Peripheral Vascular Disease: No Hypercholesterolemia: No Aneurysm: No Congestive Heart Failure: No Congenital Heart Disease: No Valvular Heart Disease: No Rheumatic Fever: No Cardiomyopathy: No Edema: No Pericarditis: No Cellulitis: No Deep Vein Thrombosis: No Hypertension: No Hypotension: No Varicose Veins: No Respiratory Problems Chronic Obstructive Pulmonary Disease (COPD): No Asthma: No Bronchitis: No Emphysema: No Pneumonia: No Pulmonary Fibrosis: No Tuberculosis: No Pulmonary Embolism: No Pulmonary Edema: No Sleep Apnea: No Stomache/Intestinal Problems Cirrhosis: No Pancreatitis: No Celiac Disease: No Gall Bladder Disease: No Gastrointestinal Bleed: No Esophageal Varices: No Snider's Esophagus: No Colitis: No Ulcerative Colitis: No Diverticulitis: No Diverticulosis: No Ulcer: No Irritable Bowel: No Crohn's Disease: No Obstructive Bowel: No Hiatal Hernia: No Hemorrhoids: No Gastroesophageal Reflux Disease: No Obesity: No Genital/Urinary Problems Renal Disease: No Kidney Stones: No Polycystic Kidney Disease: No Neurogenic Bladder: No Inguinal Hernia: No Dialysis: No Benign Prostatic Hyperplasia: No Reproductive Problems Fibroids: No Genital Herpes: No Gonorrhea: No Syphilis: No Testicular Cancer: No Musculoskeletal Problems Muscular Dystrophy: No Myasthenia Gravis: No Marfan's Syndrome: No Arthritis: No Rheumatoid Arthritis: No Osteoporosis: No Degenerative Disk Disease: No Gout: No Scoliosis: No Carpal Tunnel Syndrome: No Fibromyalgia: No Fractures: No Degenerative Joint Disease: No Osteomyelitis: No Poliovirus: No Head,Eye,Nose,Throat Problems Cataracts: No Glaucoma: No Blind: No Retinal Detachment: No Macular Degeneration: No Chronic Ear Infections: No Deafness: No Eye Prosthesis: No Endocrine Problems Diabetes Mellitus Type 1: No Diabetes Mellitus Type 2: No Hypoglycemia: No Sammy's Syndrome: No [place]'s Disease: No Hyperthyroidism: No Hypothyroidism: No Parathyroid Disease: No Pituitary Disease: No Systemic Lupus Erythematosus: No Syndrome of Inappropriate Antidiuretic Hormone: No Adrenal Disease: No Graves' Disease: No Blood Problems Anemia: No Leukemia: No Hemophilia: No Thalassemia: No Sickle Cell Disease: No Clotting Problems: No Psychologic Problems Schizophrenia: No Recreational Drug Use: No Bipolar Disorder: No Depression: No Anxiety: No Behavior Problems: No Self-Mutilation: No Attention Deficit Disorder: No Attention Deficit Hyperactivity Disorder: No Depression: No Post Traumatic Stress Disorder: No Eating Disorder: No Other Problems Autism: No Organ Transplant: No Surgical History Carotid Endarterectomy: No Coronary Artery Bypass Graft: No Valve Replacement: No Pacemaker: No Thyroidectomy: No History of Present Illness HPI Narrative Discharge Summary : Patient is a 43-year-old male with past medical history significant for epilepsy presenting today with a chief complaint of multiple seizures. Patient will be admitted for treatment and management of breakthrough seizures. Prior to hospitalization patient had 4 seizure episodes. During his stay he was treated with levetiracetam 1 g IV twice daily along with zonisamide 100 Mg p.o. at bedtime. Head CT was negative for acute hemorrhage, mass effect or midline shift. Brain MRI was negative for acute hemorrhage mass effect or midline shift. No findings suggestive of demyelinating disease or abnormal enhancement. EEG was an abnormal study. Neurology, Dr. Tavarez recommended patient be discharged on levetiracetam 1 g p.o. twice daily and zonisamide 100 Mg p.o. at bedtime. Absolutely no driving for at least 1 year. For the patient's elevated CK, he was treated with normal saline IV fluids after which it improved. All patient's labs are now returning to his baseline and patient is clinically stable and fit for discharge to home. Hospital Follow Up 09/18/2024: Patient accompanied by his brother Trevon. Patient has been seizure free since discharge from the hospital. He reports compliance with new dosage of Keppra and Zonisamide with no reported side effects. Also he is abstaining from driving as per the recommendation for 1 year. He still complains of some left elbow pain, controlled with celebrex, but now has increased range of motion. His tongue ulcer is also improving and the pain is alleviated from viscous lidocaine mouth wash. He has an appointment to see his Neurologist in [place] in 1 year. Patient expressed that he wishes to follow up with a neurologist in [facility], sent a referral to Dr. Tavarez. Will see back in the office in 2 months Objective/Exam Narrative Physical exam: Constitutional Alert, oriented x 3 and comfortable HEENT Vision grossly intact. Patent nares. Trachea midline Respiratory Chest normal on inspection and clear auscultation bilaterally Cardiovascular S1 and S2 audible, RRR. No murmurs carotid bruit. No gross JVD. Abdominal Soft and non tender to palpation in all quadrants. BS + Genitourinary No bladder tenderness, no flank pain. Normal to palpation Musculoskeletal Extremities tone within normal limits. No LE edema. Neurological CN II - XII grossly intact. Extremity motor and sensation grossly intact. Skin Warm, dry and intact. No apparent lesions. Psychiatric Patient has good affect, is cooperative Assessment & Plan Diagnosis / Problem List (1) Epilepsy: Status: Acute Qualifiers: Epilepsy type: unspecified Status epilepticus: with status epilepticus Qualified Code(s): G40.901 - Epilepsy, unspecified, not intractable, with status epilepticus Assessment & Plan: Patient has been seizure free since discharge from the hospital. He reports compliance with new dosage of Keppra and Zonisamide with no reported side effec ts. Also he is abstaining from driving as per the recommendation for 1 year. He has an appointment to see his Neurologist in [place] in 1 year. Patient expressed that he wishes to follow up with a neurologist in [facility], sent a referral to Dr. Tavarez. Plan: - Continue Zonisamide 100mg po HS - Continue Keppra 1500mg po BID - Abstain from driving or heavy equipment operation for 1 year - Referral sent for authorization to Neurologist, Dr. Tavarez. ? If you experience any seizures lasting more than 5 minutes or multiple seizure episodes, dial 911 or present to the emergency department immediately. Plan Plan of care discussed with Attending Dr. Pao Lassiter MD PGY 1 Disclaimer: This note was dictated by speech recognition. Minor errors in roll dough divider may be present due to voice recognition software. Orders: Referrals Neurology G40.909 - Epilepsy, unspecified, not intractable, without status epilepticus Office Procedures [facility] Level of Care Nursing/Assessment Patient Status: Established Patient Nursing Assessment/Reassessment: Medication Reconciliation, Update PMH in EMR and Vital Signs Coordination of Care: Complex Care and Chronic Disease 1-5, Consent,records obtained, informed consent, Education Simp Pt/Fam, Lab and Imaging orders, Results/Orders obtained and Staff clarify orders Established Patient Charge Established Patient Point Assignment: 105 Established Patient Point Charge: EP Level 3 (80-115) TB Screening LTBI Screening: Has patient traveled, was born, or resided for at least 1 month, or frequent border crossing into a country with an elevated TB rate: No Immunosuppression, current or planned (HIV, organ transplant, treated with biologic agents, steroids, or other immunosuppression medication): No Close contact to someone with infectious TB disease during lifetime: No Homelessness or incarceration, current or past: No TB testing indicated at this time (at least 1 yes above): No
[2024-09-18 15:07] VITALS: BP 122/81; PULSE 66; RESP 14; TEMP 36.7; O2SAT 97; BMI 27.3
== END 2024-09-18 15:19 | disposition home or self-care (01) ==
LOC: HODAHC 14:39
PROVIDERS: Supervising Provider Internal Medicine
DX: G40.901 Epilepsy, unspecified, not intractable, with status epilepticus (principal); M25.522 Pain in left elbow; K14.0 Glossitis
CPT/HCPCS: 99213; 99214; G0463

== ENCOUNTER 2025-02-04 08:22 | Emergency (ER) | payer MEDICAID, SELFPAY ==
--- NOTE | 2025-02-04 08:28 | XR_ITS ---
Examination: CT brain head without contrast. 2-D sagittal coronal reconstructions Date and time of exam:February 04, 2025, 0932 hrs., Comparison September 15, 2024 Indications: Patient fell today with into the head, seizure activity, head pain CTDI: vol (mGy):56.5 DLP: (mGycm):1206 Technique: Multiple CT axial sections of the brain have been obtained, 5 mm slice thickness. Contrast has not been administered. 2-D sagittal, coronal reconstructions have been obtained Low dose protocols were performed. One or more of the following dose reduction techniques were used; automated exposure control, adjustment of the mA and/or KV according to patient size, use of iterative reconstruction technique. Findings: No significant ventricular enlargement. Intra-axial or extra-axial hemorrhage density is not seen. No mass effect or midline shift Basal cisterns are not remarkable. Fourth ventricle is midline. Cranial vault intact. Impression: Negative for acute hemorrhage, mass effect or midline shift Advise clinical correlation and follow-up accordingly
[2025-02-04 08:32] VITALS: BP 125/86; PULSE 102; RESP 19; TEMP 37; O2SAT 96
--- NOTE | 2025-02-04 08:32 | PD.EDSEIZ ---
ED Seizures RME/HPI General Chief Complaint: Seizure Stated Complaint: SEIZURES Time Seen by Provider: 02/04/25 08:27 Source: EMS Arrival date/time: 02/04/25 08:22 Mode of arrival: EMS RME / HPI RME / HPI Narrative: DR. JOSAFAT BARRAZA ED EVALUATION: Patient is a 44-year-old male with medical history notable for epilepsy that is in the emergency department after having had 3 breakthrough seizures. Per EMS they obtained the history from family that called the EMS. Patient had been drinking and had 3 tonic-clonic seizures while in bed. Patient denies chest pain however does endorse a headache. Denies abdominal pain, fever, drugs alcohol smoking. Related Data Previous Rx's ?Medication ?Instructions ?Recorded levetiracetam 1,000 mg tablet 1,500 mg (1.5 x 1,000 mg) PO BID 1 09/18/24 month #90 tabs zonisamide 100 mg capsule 100 mg PO HS 1 month #30 caps 09/18/24 Allergies Allergy/AdvReac Type Severity Reaction Status Date / Time No Known Allergies Allergy Verified 09/18/24 15:08 Review of Systems Review of Systems Systems Reviewed: All systems reviewed, normal except as documented Past Medical History Family History FAMILY HISTORY: Positive Family Cardiac Disorders, Family Cancer and Family Surgery; Negative Family Psychiatric Problems Social History SMOKING STATUS: Unknown if ever smoked ED Exam General General appearance: Present alert Head Head exam: Present atraumatic and normocephalic Eye Eye exam: Present normal appearance and PERRL ENT ENT exam: Present normal exam and normal oropharynx Neck Neck exam: Present normal inspection and full ROM; Absent tenderness Chest Chest inspection: Present normal inspection and symmetric chest wall rise Respiratory Respiratory exam: Present normal lung sounds bilaterally; Absent respiratory distress Cardiovascular Cardiovascular exam: Present regular rate Abdominal Exam Abdominal exam: Present soft; Absent distention, tenderness or guarding Extremities Exam Extremities exam: Present normal inspection Back Exam Back exam: Present normal inspection Neurological Exam Neurological exam: Present alert and CN II-XII intact; Absent motor sensory deficit Psychiatric Psychiatric exam: Present agitated Course Quality Measures none Orders Category Date Time Status EKG (ED ONLY) *Do not use* NOW Care 02/04/25 08:34 Completed Seizure precautions NOW Care 02/04/25 08:[address] head/brain wo con Stat Exams 02/04/25 08:28 Completed EKG (ED Only) Stat Exams 02/04/25 08:34 Draft CBC Stat Lab 02/04/25 08:38 Completed CMP [Comprehensive Metabolic Panel] Stat Lab 02/04/25 08:38 Completed PT [Prothrombin Time with INR] Stat Lab 02/04/25 08:38 Completed Acetaminophen Tab [Tylenol Tab] Med 02/04/25 08:40 Discontinued 650 mg PO X1 ONE Folic Acid Med 02/04/25 08:28 Discontinued 1 mg PO X1 ONE Folic Acid Inj Med 02/04/25 08:30 Discontinued 1 mg IVP X1 ONE Ringers Lactated 1000 ml [Lactated Ringers] 1,000 ml Med 02/04/25 08:28 Discontinued IV 999 mls/hr Thiamine Inj [Vitamin B-1 Inj] 100 mg Med 02/04/25 08:29 Discontinued Sodium Chloride 0.9% [Ns] 100 ml IV X1 Thiamine Inj [Vitamin B-1 Inj] 100 mg Med 02/04/25 08:30 Discontinued Sodium Chloride 0.9% [Ns] 100 ml IV X1 levETIRAcetam INJ [Keppra Inj] Med 02/04/25 08:28 Discontinued 1,500 mg IVP X1 ONE Vital Signs Vital signs: Vital Signs Temperature 98.6 F 02/04/25 08:32 Pulse Rate 102 H 02/04/25 08:32 Respiratory Rate 19 02/04/25 08:32 Blood Pressure 125/86 H 02/04/25 08:32 Pulse Oximetry (%) 96 02/04/25 08:32 Oxygen Delivery Method Nasal Cannula 02/04/25 08:32 Oxygen Flow Rate 2 02/04/25 08:32 Seizure MDM Narrative MDM Narrative:: Patient is a 44-year-old male with medical history notable for epilepsy that seen emergency department after having had multiple breakthrough seizures overnight. Vital signs and exam as listed. Concern for medication noncompliance, metabolic disturbance, intracranial hemorrhage among others. Ordered labs EKG medications for symptom relief. Labs with evidence of leukocytosis 14, no left shift. No significant electrolyte abnormalities. No other abnormalities appreciated. On metabolic panel. CT brain unremarkable. EKG performed today at 8:55 AM, notable for sinus rhythm, normal intervals, nonspecific T wave changes, no cardiac On reevaluation patient hemodynamically stable not in distress tolerating oral intake. Ambulating without any difficulties. Patient will be discharged she is hemodynamically stable not distress, back at his neurologic baseline. I, Kisha Hussein, savita scribing for and in the presence of Dr. Mast. Patient data External records reviewed:: [facility] previous records and EMS form Clinical information provided by:: patient and EMS Social determinants that could affect healthcare access:: alcohol use Patient has the following chronic illnesses:: epilepsy How is presenting disease/condition affected by chronic disease/condition?: exacerbated by Evaluation data The following diagnostics were reviewed and interpreted by me:: lab results, radiology exam(s) and EKG tracing(s) (My interpretation: EKG performed at 0855 hours, sinus rhythm, rate 83, normal intervals, non specific T wave changes, not a cardiac alert) Lab and/or radiology exams considered but not ordered:: None Interpretation Summary: See MDM narrative above. RADIOLOGY Procedure(s): CT head/brain wo con Accession Number(s): [id number] cc: Josh Calderon MD; Garcia Santos MD; Nakia Mast MD~ Examination: CT brain head without contrast. 2-D sagittal coronal reconstructions Date and time of exam:February 04, 2025, 0932 hrs., Comparison September 15, 2024 Indications: Patient fell today with into the head, seizure activity, head pain CTDI: vol (mGy):56.5 DLP: (mGycm):1206 Technique: Multiple CT axial sections of the brain have been obtained, 5 mm slice thickness. Contrast has not been administered. 2-D sagittal, coronal reconstructions have been obtained Low dose protocols were performed. One or more of the following dose reduction techniques were used; automated exposure control, adjustment of the mA and/or KV according to patient size, use of iterative reconstruction technique. Findings: No significant ventricular enlargement. Intra-axial or extra-axial hemorrhage density is not seen. No mass effect or midline shift Basal cisterns are not remarkable. Fourth ventricle is midline. Cranial vault intact. Impression: Negative for acute hemorrhage, mass effect or midline shift Advise clinical correlation and follow-up accordingly Dictated By: Garcia Santos MD Medications / Prescriptions Medications or Prescriptions considered but not ordered:: None Medication administrations:: Medication Administration History Discontinued Medications Acetaminophen (Acetaminophen 325 Mg Tablet) 650 mg PO X1 ONE Stop: 02/04/25 08:41 Last Admin: 02/04/25 08:46 Dose: 650 mg Documented By: EF Folic Acid (Folic Acid 1 Mg Tablet) 1 mg PO X1 ONE Stop: 02/04/25 08:29 Last Admin: 02/04/25 08:53 Dose: Not Given Documented By: EF Non-Admin Reason: Cancelled by Provider Folic Acid (Folic Acid Inj 1 Mg/0.2 Ml) 1 mg IVP X1 ONE Stop: 02/04/25 08:31 Last Admin: 02/04/25 08:47 Dose: 1 mg Documented By: EF Lactated Ringer's (Lactated Ringers) 1,000 mls @ 999 mls/hr IV .Q1H1M ONE Stop: 02/04/25 09:28 Last Infusion: 02/04/25 09:50 Dose: Infused Documented By: Admin: 02/04/25 08:35 Dose: 999 mls/hr Documented By: EF Thiamine HCl 100 mg/ Sodium (Chloride) 101 mls @ 202 mls/hr IV X1 ONE Stop: 02/04/25 08:58 Thiamine HCl 100 mg/ Sodium (Chloride) 101 mls @ 202 mls/hr IV X1 ONE Stop: 02/04/25 08:59 Last Infusion: 02/04/25 09:50 Dose: Infused Documented By: Admin: 02/04/25 08:47 Dose: 202 mls/hr Documented By: EF Levetiracetam (Levetiracetam Inj 100 Mg/Ml Vial 5ml) 1,500 mg IVP X1 ONE Stop: 02/04/25 08:29 Last Admin: 02/04/25 08:35 Dose: 1,500 mg Documented By: EF See above Consultations Consultation(s) initiated? (list below): No Diagnosis Seizure Differential Diagnosis: other (Breakthrough seizure due to medication noncompliance or alcohol intake, alcohol withdrawal seizure, and electrolyte abnormality.) Most likely diagnosis given after review of the tests above:: Epilepsy Admission Indicated Admission indicated?: not indicated Admission Request Was there a request for admission?: No Disposition Plan Disposition Plan: Discharge Discharge Attestation Discharge Attestation: The patient and all family members were given an opportunity to ask questions and understood the discharge instructions. Discharge instructions specifically effects, indications for sooner follow up or return to the emergency department, and the expected course of current diagnosis. Patient condition: Stable Discharge Plan Plan Patient Disposition: HOME (Self Care) Prescriptions/Referrals Prescriptions/Med Rec: No Action levetiracetam 1,000 mg tablet 1,500 mg PO BID 30 Days Qty: 90 2RF zonisamide 100 mg capsule 100 mg PO HS 30 Days Qty: 30 1RF Problem List Clinical Impression: Epilepsy Patient/Caregiver Discharge Instructions Education Materials: ED Seizure, Recurrent (Adult) Additional Instructions: Por favor tomarse jeane [employer] david la formula y hacer seguimiento con dudley medico de cabecera dentro de 1-2 klein Print Language: Filipino Stand Alone Forms: [employer] Award Info., Patient Portal Info Letter
--- NOTE | 2025-02-04 08:34 | EKG_ITS ---
[facility] (Formerly [facility]) Test Date: 2025-02-04 Pat Name: JOSH GRIFFITH Department: Room: - Gender: Male Paving Bed Maker: : 1980 Requested By: Nakia Richards Order Number: [id number] Reading MD: Nakia Richards Measurements Intervals [place] Rate: 83 P: 59 NV: 156 QRS: 8 QRSD: 110 T: 42 QT: 389 QTc: 459 Interpretive Statements SINUS RHYTHM LOW QRS VOLTAGE IN PRECORDIAL LEADS [QRS DEFLECTION < 1.0 mV IN CHEST LEADS] POSSIBLE ANTERIOR MYOCARDIAL INFARCTION , OF INDETERMINATE AGE [30 ms Q WAVE IN V3/V4, OR R < 0.2 mV IN V4] Compared to ECG 09/15/2024 11:49:59 Low QRS voltage now present Myocardial infarct finding now present /store/S0/[id number].pdf
[2025-02-04] MEDS: RINGERS LACTATED 1000 ML 1,000 ML 999 ML IV (08:35)
[2025-02-04] MEDS: levETIRAcetam INJ 100 MG/ML VIAL 5ML 1500 MG IVP (08:35)
--- NOTE | 2025-02-04 08:40 | PC.NURSE ---
pateint BIBA for seizures per ems patient was combative and they were unable to get vitals or blood sugar on patient. ems states 3 seizures about 2-3 minutes each witnessed by mom
[2025-02-04] MEDS: ACETAMINOPHEN 325 MG TABLET 650 MG PO (08:46)
[2025-02-04] MEDS: THIAMINE INJ 100 MG in SODIUM CHLORIDE 0.9% 100 ML 202 MG IV (08:47)
[2025-02-04] MEDS: FOLIC ACID INJ 1 MG/0.2 ML IVP (08:47)
[2025-02-04 08:56] LABS: Basophils # (Auto) 0.1 Thou/mm3 (0.0-0.2); Basophils % (Auto) 1 % (0-2.5); Eosinophils # (Auto) 0.0 Thou/mm3 (0.0-0.5); Eosinophils % (Auto) 0 % (0-10); Hematocrit 45.2 % (41.0-53.0); Hemoglobin 15.5 g/dL (13.5-16.0); Immature Granulocytes Auto 0.08 Thou/mm3 (0.00-0.00); Lymphocytes # (Auto) 2.7 Thou/mm3 (1.0-4.8); Lymphocytes % (Auto) 19 % (10-50); Mean Corpuscular HGB Conc 34.3 g/dl (31.0-37.0); Mean Corpuscular Hemoglobin 31.7 pg (25.0-35.0); Mean Corpuscular Volume 92 fL (80-100); Monocytes # (Auto) 0.8 Thou/mm3 (0.0-0.8); Monocytes % (Auto) 6 % (0-12); Neutrophils # (Auto) 10.4 Thou/mm3 (1.8-7.7); Neutrophils % (Auto) 74 % (37-80); Nucleated Red Blood Cell # 0.00 Thou/mm3 (0.00-0.00); Nucleated Red Blood Cell % 0 /100 WBC (0); Platelet Count 281 Thou/mm3 (140-440); RDW Standard Deviation 40.7 fL (35.1-43.9); Red Blood Count 4.89 Miln/mm3 (4.50-5.90); White Blood Count 14.2 Thou/mm3 (3.8-10.6)
[2025-02-04 09:03] LABS: INR 1.0 (0.9-1.3); Prothrombin Time 10.9 Seconds (9.0-12.2)
[2025-02-04 09:15] LABS: Alanine Aminotransferase 22 U/L (10-49); Albumin, Serum 4.6 gm/dL (3.5-5.0); Albumin/Globulin Ratio 1.6 (1.2-2.2); Alkaline Phosphatase 94 U/L (46-116); Anion Gap 16 (7-16); Aspartate Amino Transferase 44 U/L (0-34); BUN/Creatinine Ratio 10 Ratio (12-20); Bilirubin,Total 0.5 mg/dL (0.3-1.2); Blood Urea Nitrogen 10 mg/dL (9-23); Calcium 9.0 mg/dL (8.3-10.6); Calcium (Corrected) 9.0 mg/dL (8.5-10.1); Carbon Dioxide 19.8 mMol/L (20.0-31.0); Chloride 105 mMol/L (98-107); Creatinine (Component) 1.0 mg/dL (0.6-1.3); Globulin 2.9 gm/dL (2.3-3.5); Glucose 127 mg/dL (74-106); Osmolality,Calculated 282 (275-295); Potassium 4.6 mMol/L (3.4-5.1); Sodium 141 mMol/L (136-145); Total Protein 7.5 gm/dL (5.7-8.2); eGFR > 60 See Note
[2025-02-04 10:18] VITALS: BP 125/86; PULSE 69; RESP 17; O2SAT 99
[2025-02-04 12:12] VITALS: BP 116/80; PULSE 63; RESP 16; O2SAT 98
== END 2025-02-04 12:13 | disposition home or self-care (01) ==
PROVIDERS: Emergency Provider Emergency Medicine; PCP Family Medicine
DX: G40.909 Epilepsy, unspecified, not intractable, without status epilepticus (principal)
CPT/HCPCS: 36415; 70450; 80053; 85025; 85610; 93005; 96365; 96375; 99284; J1953; J3411; J3490; J7050; J7120; A9270